=== PATIENT | female | born 1955 | race Caucasian/White ===

== ENCOUNTER 2018-06-19 09:00 | Outpatient (RCR) | payer OTHER, MEDICAID, SELFPAY ==
--- NOTE | 2018-05-26 14:32 | PTTR_ITS ---
DATE: 05/26/18 SUBJECTIVE: Yesenia states she underwent a Neurolysis in her left arm near the radial nerve on the lateral aspect of her left UE. This was done on the 28 of April. Has been rechecked by her doctor who indicated it was O.K. for her to resume P.T. She has also been seen by Ne Bower, MS, OTR for splint fabrication. She is going back to see her later this week for finishing touches , to point the outriggers on the dorsal aspect of the splint. Yesenia states she has been working light [employer], and feels as though she has gained a little bit of thumb motion back. Also, finding increased ability to hold her wrist from completely flopping into terminal flexion when raising her arm. OBJECTIVE: Seen today for a recheck. UE pronation 4+/5, supination 4-/5 and she is now able to extend MCP #2 through #5 from 80 of flexion to lacking 5 of extension. Has also regained some of her active contraction, gravity assisted, into extension, ranging from 70 of flexion to lacking 30 of extension. Shoulder internal and external rotation strength is 4/5 and painfree. Biceps 4-/5 with deviation into pronation. Thumb extension of the CMC joint is 1/5 and thumb whitaker abduction 3/5. She does have a mild opening in the mid incision with some cirrus anguis drainage. Redness is also noted, but she states this is due to a reaction from the band aid. Manual therapy: (06106z[1]). Left glenohumeral joint mobs through flexion, scapular plane abduction and external rotation. Actively, she is achieving 140 of elevation of the left shoulder in the scapular plane. Therapeutic procedures (11232d[1]). * [x] HEP review: upgraded her HEP, working a lot of gravity assisted extension, AA, of the wrist and fingers, particularly digits #1 through #5 of the MCP joint. * x Electrical Stim Unattended - [id number]: NMES to the dorsal forearm x10 minutes; 5 seconds on / 12 seconds off . Positive lead was on the proximal wrist extensor musculature and negative lead was on the dorsal extensor mechanism just proximal to the wrist joint line. Direct treatment time: 10:00 til 10:45 A.M. Assessment: Does seem to be some return into the wrist extensors, as she is able to maintain 30 lag from terminal extension, now. Did progress her AAROM for extension of the wrist and MCP joints. Plan: Will reach out to the O.T. to have a conversation regarding progression of treatment. Yesenia would also benefit from scar tissue mobs, particularly the distal half. Will see Yesenia 2x per week starting next week for Neuro muscular re-ed for wrist and finger extensors as well as wrist mobilization into extension as she achieves 35 to 40 AA. This will certainly need to be progressed so she can gain full AROM, not limited from an articular stand point , as her muscles heal. The patient is in agreement with this POC. MM/gc
--- NOTE | 2018-06-03 13:40 | PTTR_ITS ---
DATE: 06/03/18 SUBJECTIVE: Yesenia states she saw the [place] [facility] [place] her Outrigger Brace. Had some loose pins that needed tightening with an Raphael wrench making sure the carrying angle is at 90 from the phalanx. OBJECTIVE: Manual therapy: (18136l4). A/AA/PROM into MCP, DIP and PIP flexion. Wrist extension with dorsal and whitaker glides, as well as hold relax mobs into forearm supination. * [x] Neuro Re-education - (16435 x1): via NMES. She was issued an EMPI Unit to try at home 3x per day x30 minute sessions to the extensor musculature. Was able to palpate mild muscle activation in the dorsal forearm with this activity. Direct treatment time: 11:00 til 11:45 A.M. Plan: Continue as indicated above. She is making good gains with her composite flexion between MCP, DIP and PIP, approximating 1 cm. fingertip to whitaker crease. MM/gc
--- NOTE | 2018-06-05 13:26 | PTTR_ITS ---
DATE: 06/05/18 SUBJECTIVE: Yesenia reports compliancy with the NMES Unit. Had to turn it down from 30 to 25 secondary to increased aching in the forearm. Has also been working on her composite finger flexion. She sees her O.T. tomorrow. OBJECTIVE: Manual therapy: ([id number]). A/AA/PROM of MCP, DIP and PIP of digits #2 through #5 of the left hand followed by forearm supination mobs using hold relax technique. The patient is actively supinating to 60 and active assistively to 70 . Pronation is WNL. The patient is displaying recruitment of wrist extension, now. We had her work on active wrist extension against gravity. She starts at 70 of flexion and achieves -25 from neutral wrist extension. Also, worked on this in a gravity lessened position where she goes from 60 of flexion to neutral. This was followed by active MCP flexion and extension. She has good activation for MCP flexion, but unable to elicit any recruitment for extension, however PIP and DIP flexion and extension appear to provide motion through functional range. * [x] Neuro Re-education - (92994 x[1]): Ended with NMES to the wrist extensor musculature x10 min. Direct treatment time: 45 minutes from 7:30 til 8:15 A.M. Assessment: Holding up well with NMES use at home. Plan: Continue as indicated above. MM/gc
--- NOTE | 2018-06-10 11:15 | PTTR_ITS ---
DATE: 06/10/18 SUBJECTIVE: Yesenia states she saw the O.T. at [place] for splint adjustments, incorporating a thumb darlyn. Continues to work with the NMES. She does display some active wrist extension, now, in a gravity lessened position, achieving -10 from neutral position. OBJECTIVE: Manual therapy: ([id number]). Forearm supination hold relax mobs on the left followed by composite flexion, MCP, DIP and PIP into flexion achieving whitaker crease AA. Still approx. 1 cm. away A. Also, worked on isolated PIP and DIP combination flexion achieving fingertips to base of MCP on the whitaker surface. * x Neuro Re-education - (64107 x1): x10 minutes 1 to 3 ratio on/off with verbal and tactile cues for elicitation of AAROM into extension in a gravity lessened position. * Did require some assistance with MCP extension, as this is still limited. Direct treatment time: 45 minutes Assessment: Palpable contraction noted through the forearm extensor for wrist extension. Still no return for MCP extension at this point. Overall, is progressing well. Plan: Continue with the current POC examining her shoulder at her next appointment. MM/gc
--- NOTE | 2018-06-12 14:40 | PTTR_ITS ---
DATE: 06/12/18 SUBJECTIVE: Yesenia states the nylon band broke on her dynamic splint. She is otherwise holding up well with the NMES. OBJECTIVE: Manual therapy: (11412k2). Component flexion MCP, PIP and DIP of digits 2 through 5 of the left hand followed by MP and IP jt mobs whitaker and dorsal at a Grade 4. AAROM of the thumb into whitaker abduction and thumb extension. Worked AAROM into extension from 70 of flexion to neutral. Then performed mobs into wrist extension followed by left glenohumeral jt mobs for AAROM into flexion achieving 150 and then ext rotation to 75 to 80 . Held on NMES as she is performing this at home independently. Direct treatment time: 3:30 til 4:15 P.M. Did reapply 10# tension fishing line to the 2nd digit darlyn, which worked well. Plan: Continue as indicated above. MM/gc
--- NOTE | 2018-06-16 09:00 | PTTR_ITS ---
DATE: 06/16/18 SUBJECTIVE: Yesenia states that she did place an order for replacement NEMS unit which should be coming in later this week. Has been applying vitamin E ointment over the incision, which appears to be well closed with no drainage now. Manual therapy: (79033g9). A/AA/PROM MCP/PIP/DIP joint flexion,composite and individually blocked with MCP in neutral position. Also performed hold/ relax mobilization into forearm supination as well as radial and ulnar joint mobilization at radial carpal joint. Therapeutic procedures (85694q9). Progression of HEP incorporate some active ulnar deviation, radial deviation as well as active forearm supination/ pronation. Direct treatment time: 45 mins Total treatment time: 45 mins P: Continue as above. Review her newly acquire NEMS unit if she has it next visit. MM/dl
--- NOTE | 2018-06-19 09:00 | PTTR_ITS ---
DATE: 06/19/18 SUBJECTIVE: Yesenia reports that she purchased a NEMS unit. She brings in her [place] unit and we review application and usage of this. Self care training [id number]: For instruction and use of NEMS for forearm muscle recruitment purposes. This is followed by Manual therapy: (78674h5). Performed PIP/MCP/DIP flexion combined as well as isolated PIP/DIP flexion with MCP in neutral position. Also performed forearm supination, hold/relax with humeral,ulnar joint distraction. Then performed some L GH joint lateral distraction, caudal glides and ER hold/relax mobilization as well as stretching into terminal flexion which she is achieving 125 to 130 degrees. She substitutes to approximately 145 degrees AA, but this is with excessive scapular substitution. Direct treatment time: 45 mins Total treatment time: 45 mins P: Follow up with Yesenia after re-check with OT at [facility] [place], continue current POC, start to integrate some more AROM and light strengthening for the wrist and forearm as tolerable. Patient is in agreement with this. MM/dl
== END 2018-06-20 23:59 | disposition home or self-care (01) ==
LOC: PT 09:00
PROVIDERS: PCP Family Medicine; Referring Provider Psychiatry & Neurology Neurocritical Care; Visit Provider Psychiatry & Neurology Neurocritical Care
DX: S43.006D Unspecified dislocation of unspecified shoulder joint, subsequent encounter (principal); S14.3XXD Injury of brachial plexus, subsequent encounter
CPT/HCPCS: 97014; 97110; 97112; 97140; 97535

== ENCOUNTER 2018-12-07 15:15 | Inpatient (IN) | payer OTHER, MEDICAID, SELFPAY ==
[2018-12-07 15:20] VITALS: BP 163/92; PULSE 88; RESP 22; TEMP 36.4; O2SAT 93
[2018-12-07] MEDS: Albuterol/Ipratropium 3 ML UPD VIAL ×2 (15:32→15:55)
[2018-12-07 15:56] VITALS: RESP 22; O2SAT 92
--- NOTE | 2018-12-07 16:10 | DI.RAD_ITS ---
SYMPTOMS/DIAGNOSIS: COUGH CHEST: Frontal and lateral views. Comparison 11/24/11. The cardiac silhouette appears within normal limits. There does not appear to be any significant change in appearance of the lungs compared to the prior examination. No new infiltrates, effusions or pneumothoraces are identified. The bones are intact. IMPRESSION: No acute
--- NOTE | 2018-12-07 16:10 | W.ED.GENAD ---
Discharge Plan Discharge Details Chief Complaint: RespSymp Reason For Visit: PNEUMONIA Admit Date/Time: 12/07/18 18:01 Admit Provider: Martín Tai Attending Provider: Martín Tai Primary Care Provider: Kwesi Stewart ED Provider: John Bianchi Discharge Data Discharge Date/Time-TO BE ENTERED AT DEPARTURE: 12/07/18 18:56 Medical Decision Making 63-year-old female here with cough and shortness of breath. Saturating in the upper 80s with wheezing. RT was consulted. Patient was administered multiple DuoNeb's. Patient was given Solu-Medrol to 125 mg IV. On reassessment she has improved. She is saturating low 90s on 2 L nasal cannula. Labs reviewed and hypokalemia noted. Will replete. Leukocytosis noted and lactate of 1.7. Chest x-ray reviewed and interpreted by radiology: Opacity in the medial right lower lobe may represent atelectasis or pneumonia. Plan to treat with Levaquin. Blood cultures pending. Plan to admit. --Dr. Tai to admit the patient. HPI General Mode of arrival: ambulatory. Date/Time Provider Initiated Documentation: 12/07/18 16:10. Limitations to Documentation: no limitations. Information obtained by: patient. HPI Narrative: 63-year-old female here with cold and cough for the past 10 days. Cough is productive of yellow sputum. Symptoms have been severe at times. No modifiers. Symptoms persisting and worsening. Has associated body aches, fever, and now with crusty eye discharge today. She also notes associated shortness of breath. Related Data Home Medications Medication Instructions Recorded Confirmed Januvia 100 mg PO DAILY 05/31/14 12/07/18 Vitamins B Complex 1 tab PO DAILY 05/31/14 12/07/18 aspirin [Aspirin Low-Strength] 81 mg PO DAILY 05/31/14 12/07/18 atorvastatin 20 mg PO DAILY 05/31/14 12/07/18 calcium carbonate-vitamin D3 1 tab PO BID 05/31/14 12/07/18 glipizide 20 mg PO DAILY 05/31/14 12/07/18 ibuprofen 800 mg PO TID PRN #30 tablet 05/31/14 12/07/18 lisinopril 10 mg PO DAILY 05/31/14 12/07/18 multivitamin [Daily Vitamin] 1 tab PO DAILY 05/31/14 12/07/18 ranitidine HCl [Zantac] 150 mg PO BID 05/31/14 12/07/18 Lantus Solostar U-100 Insulin 8 unit SQ .QHS 09/26/17 12/07/18 Lantus Solostar U-100 Insulin 32 unit SQ .QAM 09/26/17 12/07/18 Trintellix 20 mg PO DAILY 09/26/17 12/07/18 levothyroxine 50 mcg PO DAILY 12/07/18 12/07/18 Previous Rx's Medication Instructions Recorded ibuprofen 800 mg PO TID PRN #30 tablet 05/31/14 Allergies Allergy/AdvReac Type Severity Reaction Status Date / Time bupropion HCl Allergy Intermediate RASH Unverified 12/07/18 15:20 [From Wellbutrin] General Stated Complaint: RespSymp PATY: 3 Review of Systems Review of Systems All systems reviewed & are unremarkable except as noted in HPI and below Constitutional Reports chills and Reports fever(s) [facility] Medical History GERD (gastroesophageal reflux disease) (Chronic) Type 2 diabetes mellitus treated with insulin (Chronic) Hyperlipidemia (Chronic) Essential hypertension (Chronic) Surgical History H/O lumbar discectomy (Resolved) H/O rotator cuff surgery (Resolved) H/O tubal ligation (Resolved) History of cholecystectomy (Resolved) Social History marital status: number of children: 3 Smoking and Tabacco status: Never alcohol intake: never Exam Const General: cooperative and no acute distress [facility] Head: normocephalic and atraumatic Mouth: moist mucous membranes Eyes Conjunctivae: normal conjunctivae Sclera: normal sclerae EOM: EOM intact bilaterally Neck Neck: trachea midline and supple Resp Effort & Inspection: cough and tachypneic Auscultation: diminished lung sounds bilaterally Cardio Jugular venous pressure: no JVD Rate: regular rate and not tachycardic Rhythm: regular rhythm GI Palpation: soft, not firm, no guarding, no masses, not rigid and nontender Skin General skin exam: no rashes or lesions noted Neuro General: alert, awake and tone normal Extrem General: no edema Psych Appearance: grossly normal Mental Status: mental status grossly normal Speech and Movement: speech and movement normal Course Vital Signs Temperature 36.4 C L 12/07/18 15:20 Pulse 88 12/07/18 15:20 Respiratory Rate 22 12/07/18 15:20 Blood Pressure 163/92 H 12/07/18 15:20 Pulse Oximetry 93 L 12/07/18 15:20 Temperature 36.4 C L 12/07/18 15:20 Temperature Source Temporal Artery Scan 12/07/18 15:20 Pulse 88 12/07/18 15:20 Respiratory Rate 22 12/07/18 15:56 Respiratory Effort 12/07/18 15:20 Blood Pressure 163/92 H 12/07/18 15:20 Pulse Oximetry 92 L 12/07/18 15:56 Oxygen Delivery Method Nasal Cannula 12/07/18 15:56 Oxygen Flow Rate 2 12/07/18 15:56
--- NOTE | 2018-12-07 16:14 | ED.GENADUL_ITS ---
Discharge Plan Discharge Details Chief Complaint: RespSymp Reason For Visit: PNEUMONIA Admit Date/Time: 12/07/18 18:01 Admit Provider: Martín Tai Attending Provider: Martín Tai Primary Care Provider: Kwesi Stewart ED Provider: John Bianchi Discharge Data Discharge Date/Time-TO BE ENTERED AT DEPARTURE: 12/07/18 18:56 Medical Decision Making 63-year-old female here with cough and shortness of breath. Saturating in the upper 80s with wheezing. RT was consulted. Patient was administered multiple DuoNeb's. Patient was given Solu-Medrol to 125 mg IV. On reassessment she has improved. She is saturating low 90s on 2 L nasal cannula. Labs reviewed and hypokalemia noted. Will replete. Leukocytosis noted and lactate of 1.7. Chest x-ray reviewed and interpreted by radiology: Opacity in the medial right lower lobe may represent atelectasis or pneumonia. Plan to treat with Levaquin. Blood cultures pending. Plan to admit. --Dr. Tai to admit the patient. HPI General Mode of arrival: ambulatory . Date/Time Provider Initiated Documentation: 12/07/18 16:10 . Limitations to Documentation: no limitations . Information obtained by: patient . HPI Narrative: 63-year-old female here with cold and cough for the past 10 days. Cough is productive of yellow sputum. Symptoms have been severe at times. No modifiers. Symptoms persisting and worsening. Has associated body aches, fever, and now with crusty eye discharge today. She also notes associated shortness of breath. Related Data Home Medications Medication Instructions Recorded Confirmed Januvia 100 mg PO DAILY 05/31/14 12/07/18 Vitamins B Complex 1 tab PO DAILY 05/31/14 12/07/18 aspirin [Aspirin Low-Strength] 81 mg PO DAILY 05/31/14 12/07/18 atorvastatin 20 mg PO DAILY 05/31/14 12/07/18 calcium carbonate-vitamin D3 1 tab PO BID 05/31/14 12/07/18 glipizide 20 mg PO DAILY 05/31/14 12/07/18 ibuprofen 800 mg PO TID PRN #30 tablet 05/31/14 12/07/18 lisinopril 10 mg PO DAILY 05/31/14 12/07/18 multivitamin [Daily Vitamin] 1 tab PO DAILY 05/31/14 12/07/18 ranitidine HCl [Zantac] 150 mg PO BID 05/31/14 12/07/18 Lantus Solostar U-100 Insulin 8 unit SQ .QHS 09/26/17 12/07/18 Lantus Solostar U-100 Insulin 32 unit SQ .QAM 09/26/17 12/07/18 Trintellix 20 mg PO DAILY 09/26/17 12/07/18 levothyroxine 50 mcg PO DAILY 12/07/18 12/07/18 Previous Rx's Medication Instructions Recorded ibuprofen 800 mg PO TID PRN #30 tablet 05/31/14 Allergies Allergy/AdvReac Type Severity Reaction Status Date / Time bupropion HCl Allergy Intermediate RASH Unverified 12/07/18 15:20 [From Wellbutrin] General Stated Complaint: RespSymp PATY: 3 Review of Systems Review of Systems All systems reviewed & are unremarkable except as noted in HPI and below Constitutional Reports chills and Reports fever(s) [facility] Medical History GERD (gastroesophageal reflux disease) (Chronic) Type 2 diabetes mellitus treated with insulin (Chronic) Hyperlipidemia (Chronic) Essential hypertension (Chronic) Surgical History H/O lumbar discectomy (Resolved) H/O rotator cuff surgery (Resolved) H/O tubal ligation (Resolved) History of cholecystectomy (Resolved) Social History marital status: number of children: 3 Smoking and Tabacco status: Never alcohol intake: never Exam Const General: cooperative and no acute distress [facility] Head: normocephalic and atraumatic Mouth: moist mucous membranes Eyes Conjunctivae: normal conjunctivae Sclera: normal sclerae EOM: EOM intact bilaterally Neck Neck: trachea midline and supple Resp Effort & Inspection: cough and tachypneic Auscultation: diminished lung sounds bilaterally Cardio Jugular venous pressure: no JVD Rate: regular rate and not tachycardic Rhythm: regular rhythm GI Palpation: soft, not firm, no guarding, no masses, not rigid and nontender Skin General skin exam: no rashes or lesions noted Neuro General: alert, awake and tone normal Extrem General: no edema Psych Appearance: grossly normal Mental Status: mental status grossly normal Speech and Movement: speech and movement normal Course Vital Signs Temperature 36.4 C L 12/07/18 15:20 Pulse 88 12/07/18 15:20 Respiratory Rate 22 12/07/18 15:20 Blood Pressure 163/92 H 12/07/18 15:20 Pulse Oximetry 93 L 12/07/18 15:20 Temperature 36.4 C L 12/07/18 15:20 Temperature Source Temporal Artery Scan 12/07/18 15:20 Pulse 88 12/07/18 15:20 Respiratory Rate 22 12/07/18 15:56 Respiratory Effort 12/07/18 15:20 Blood Pressure 163/92 H 12/07/18 15:20 Pulse Oximetry 92 L 12/07/18 15:56 Oxygen Delivery Method Nasal Cannula 12/07/18 15:56 Oxygen Flow Rate 2 12/07/18 15:56
[2018-12-07] MEDS: methylPREDNISolone SUCC 125 MG VIAL IVP (16:27)
[2018-12-07] MEDS: Lactated Ringers 1,000 ML 125 ML IV (16:27)
[2018-12-07 16:33] LABS: Lactate 1.7 mmol/L (0.6-1.4)
[2018-12-07 16:35] LABS: Abs Immature Grans 0.09 k/cumm (0.0-0.09); Absolute Lymphocyte Count 4.28 k/cumm (1.2-3.4); Absolute Monocyte Count 1.42 k/cumm (0.11-0.7); Absolute Neutrophil Count 10.02 k/cumm (1.2-6.7); Basophils % 0.4; Eosinophils % 4.8; HCT 42.5 % (36.0-46.0); HGB 14.2 g/dL (12.0-15.5); Immature Grans % 0.5; Lymphocytes % 25.7; Mean Corp. HGB Concentration 33.4 g/dL (32.0-36.0); Mean Corpuscular Hemoglobin 28.7 pg (27.0-33.0); Mean Platelet Volume 10.8 fL (8.0-11.0); Monocytes % 8.5; Neutrophils % 60.1; Platelet Count 259 x1000/uL (130-400); RBC 4.94 m/cumm (4.00-5.20); RBC Distribution Width 13.9 % (11.7-14.6); White Blood Cell Count 16.67 k/cumm (4.4-10.8)
[2018-12-07 16:42] LABS: Absolute Basophil Count 0.07 k/cumm (0.0-0.2)
[2018-12-07 16:52] LABS: ALT 21 U/L (12-78); AST 14 U/L (15-37); Albumin 2.8 g/dL (3.4-5.0); Alkaline Phosphatase 114 U/L (46-116); Anion Gap 11.9 mmol/L (3-11); BUN 14 mg/dL (7-18); Bilirubin, Total 0.5 mg/dL (0.2-1.0); CO2 26.1 mmol/L (21.0-32.0); CREATININE 1.56 mg/dL (0.55-1.02); Calcium 9.1 mg/dL (8.5-10.1); Chloride 98 mmol/L (98-107); Estimated GFR 33.74 (mL/min/1.73m2); Glucose 219 mg/dL (70-100); Potassium 3.3 mmol/L (3.5-5.1); Sodium 136 mmol/L (136-145); Total Protein 7.7 g/dL (6.4-8.2)
--- NOTE | 2018-12-07 17:08 | DI.VRAD_ITS ---
EXAM: XR Chest, 2 Views EXAM DATE/TIME: 12/07/2018 4:12 PM CLINICAL HISTORY: 63 years old, female; Signs and symptoms; Cough TECHNIQUE: XR of the chest, 2 views. COMPARISON: No relevant prior studies available. FINDINGS: Lungs: Opacity in the medial right lower lobe may represent atelectasis or pneumonia. Pleural space: Unremarkable. No pleural effusion. No pneumothorax. Heart/Mediastinum: Unremarkable. No cardiomegaly. Bones/joints: Unremarkable. IMPRESSION: Opacity in the medial right lower lobe may represent atelectasis or pneumonia. Dictated and Authenticated by: Kayla Maldonado MD. Ordering:ALIYA Lopez MD
[2018-12-07 17:24] VITALS: RESP 32; O2SAT 89
[2018-12-07] MEDS: POTASSIUM CHLORIDE 20 MEQ/100 ML BAG 50 MEQ IVPB (17:41)
[2018-12-07] MEDS: LEVOFLOXACIN 750 MG/150 ML BAG 100 MG IVPB (17:41)
[2018-12-07 19:20] LABS: Lactate 2.2 mmol/L (0.6-1.4)
[2018-12-07 19:24] VITALS: BP 137/78; PULSE 103; RESP 22; TEMP 36.9; O2SAT 93
[2018-12-07] MEDS: POTASSIUM CHLORIDE/0.9% NACL 1,000 ML 125 MEQ IV (20:00)
--- NOTE | 2018-12-07 20:40 | HPE_ITS ---
Date of service: 12/07/18 Time of Service: 20:33 Assessment and Plan (1) Community acquired pneumonia: Current visit: Yes Status: Acute Patient reports being up to date on her pneumonia vaccine and influenza v accine. I calculated her CURB-65 score to be 1 or 3.2% 30 day mortality. Her PSI or PORT score is 81 which is class III w/ 2.8% [address] she deserves short term hospitalization for parenteral antibiotics and corticosteroids, oxygen and bronchodilators. (2) SIRS (systemic inflammatory response syndrome): Current visit: Yes Status: Acute tachypnea, tachycardia and elevated lactate suggests impending sepsis. also concerning is her azotemia which may or may not be acute. She previously had been taken off metformin for her DM d/t renal insufficiency. We will see w/ hydration whether or not her creatinine improves. I will also check UA, urine microalbumin. (3) Acute kidney injury (nontraumatic): Current visit: Yes Status: Acute continue iv fluid hydration, check urine microalbumin, UA and repeat her BMP in the a.m. (4) Type 2 diabetes mellitus treated with insulin: Current visit: No Status: Chronic As long as she is able to eat and does not suffer from hypoglycemia spells (which I doubt as she will be on corticosteroids), I am going to keep her on her Januvia and glyburide and adjust her insulin to control her glucose. 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 (5) Essential hypertension: Current visit: No Status: Chronic continue current bp meds (6) Hyperlipidemia: Current visit: No Status: Chronic continue current atorvastatin Qualifiers: Hyperlipidemia type: unspecified Qualified Code(s): E78.5 - Hyperlipidemia, unspecified (7) GERD (gastroesophageal reflux disease): Current visit: No Status: Chronic continue her ranitidine Qualifiers: Esophagitis presence: esophagitis presence not specified Qualified Code(s): K21.9 - Gastro-esophageal reflux disease without esophagitis History of Present Illness Chief Complaint: shortness of breath, cough, Narrative: 63 yr old female w/ type 2 DM (on insulin therapy), HTN, HLD, non-smoker who presents to the ER w/ 10 d of cough, dyspnea, and cold symptoms including conjunctivitis. On arrival she is found to be afebrile but hypoxemic w/ SpO2 of 89% and tachycardic at 103 bpm and tachypneic at 32 but with elevatecd bp of 163/92.Her labs demonstrated a leukocytosis of 16,000 and mildly elevated lactate of 1.7 and elevated creatinine of 1.56. Nasal swab for influenza A &B was negative. CXR demonstrated medial RLL infiltrate. She was given multiple DuoNeb nebulizers and started on methylprednisolone 125 mg ivp and levaquin 750 mg ivp. she is now admitted under observation status for parenteral antibiotics, corticosteroids and continued nebulizer treatments. Review of Systems Constitutional Reports body ache(s), Reports chills, Reports fatigue, Reports fever(s), Reports headache(s), Reports malaise and Reports poor appetite Eyes Reports eye discharge and Reports itchy eyes ENT Reports headache(s), Reports nasal congestion, Reports nasal discharge and Reports sore throat Cardiovascular Reports chest pain (With coughing) and Reports dyspnea on exertion Respiratory Reports as per HPI, Reports change in phlegm color, Reports chest congestion, Reports cough, Denies hemoptysis, Reports excessive phlegm production, Reports pain with cough, Reports dyspnea on exertion and Reports wheezing Gastrointestinal Reports nausea and Reports vomiting (dry heaves w/ coughing) Genitourinary Reports system reviewed and no additional complaints, except as docu Musculoskeletal Reports system reviewed and no additional complaints, except as docu Integumentary/Breasts Reports system reviewed and no additional complaints, except as docu Neurologic Reports system reviewed and no additional complaints, except as docu and Reports headache(s) Endocrine Reports system reviewed and no additional complaints, except as docu and Reports fatigue Hematologic/Lymphatic Reports system reviewed and no additional complaints, except as docu Allergic/Immunologic Reports itchy eyes and Reports wheezing PFSH Medical History GERD (gastroesophageal reflux disease) (Chronic) Type 2 diabetes mellitus treated with insulin (Chronic) Hyperlipidemia (Chronic) Essential hypertension (Chronic) Surgical History H/O lumbar discectomy (Resolved) H/O rotator cuff surgery (Resolved) H/O tubal ligation (Resolved) History of cholecystectomy (Resolved) Social History marital status: number of children: 3 Smoking and Tabacco status: Never alcohol intake: never Meds Home Medications Medication Instructions Recorded Confirmed Type Januvia 100 mg PO DAILY 05/31/14 12/07/18 History Vitamins B Complex 1 tab PO DAILY 05/31/14 12/07/18 History aspirin [Aspirin Low-Strength] 81 mg PO DAILY 05/31/14 12/07/18 History atorvastatin 20 mg PO DAILY 05/31/14 12/07/18 History calcium carbonate-vitamin D3 1 tab PO BID 05/31/14 12/07/18 History glipizide 20 mg PO DAILY 05/31/14 12/07/18 History ibuprofen 800 mg PO TID PRN #30 tablet 05/31/14 12/07/18 Rx lisinopril 10 mg PO DAILY 05/31/14 12/07/18 History multivitamin [Daily Vitamin] 1 tab PO DAILY 05/31/14 12/07/18 History ranitidine HCl [Zantac] 150 mg PO BID 05/31/14 12/07/18 History Lantus Solostar U-100 Insulin 8 unit SQ .QHS 09/26/17 12/07/18 History Lantus Solostar U-100 Insulin 32 unit SQ .QAM 09/26/17 12/07/18 History Trintellix 20 mg PO DAILY 09/26/17 12/07/18 History levothyroxine 50 mcg PO DAILY 12/07/18 12/07/18 History Allergies Allergy/AdvReac Type Severity Reaction Status Date / Time bupropion HCl Allergy Intermediate RASH Unverified 12/07/18 15:20 [From Wellbutrin] Exam Const General: cooperative, no acute distress and ill appearing acutely Nutritional Appearance: overweight Orientation: alert, awake and oriented x3 HENMT Head: normal to inspection, no palpable skull fracture, normocephalic and atraumatic Ears: hearing grossly normal bilaterally, external ears normal and TM's normal bilaterally General nose exam: external nose normal, mucous membranes and turbinates abnormal boggy and erythematous and nasal discharge purulent Face and sinus: normal facial exam Mouth: oral mucosae normal Throat: posterior oropharynx normal Eyes Visual Douglas: normal visual douglas by confrontation Alignment and Position: alignment normal Periorbital: periorbital findings normal Eyelids: eyelid abnormality right upper eyelid lid margins crusty and scaly and left upper eyelid lid margins crusty and scaly Conjunctivae: conjunctival abnormality bilaterally conjunctival injection diffuse (erythematous) Sclera: sclerae normal Cornea: corneas normal Pupils: PERRL EOM: EOM intact bilaterally Neck Neck: normal visual inspection, full ROM, no lymphadenopathy, trachea midline and no JVD Carotids: normal carotid upstroke Resp Effort & Inspection: normal respiratory effort and able to speak in complete sentences Auscultation: bronchovesicular breath sounds on the right, rhonchi upper bilaterally, wheezes scattered wheezes and rub present Tactile Fremitus: tactile fremitus present Cardio Jugular venous pressure: no JVD Palpation: normal PMI Rate: regular rate Rhythm: regular rhythm Heart Sounds: S1 normal and S2 normal Bruits: no abdominal aortic bruits and no carotid bruits Pulses: normal peripheral pulses GI Inspection: normal to inspection and obesity Palpation: soft, no hepatosplenomegaly and nontender Percussion: normal to percussion Auscultation: normal bowel sounds Back/Spine/Pelvis Back: no CVA tenderness Cervical Spine: normal cervical lordosis Skin General skin exam: no rashes or lesions noted Neuro General: alert, awake, oriented x3, moves all extremities and no focal motor deficits Cognition: normal cognition Speech: speech normal Motor: muscle tone normal throughout and no movement abnormalities noted Extrem General: normal to inspection, full ROM and no clubbing, cyanosis or edema Psych Appearance: grossly normal and well kempt Mental Status: mental status grossly normal Speech and Movement: speech and movement normal Mood: congruent mood Affect: normal affect Attitude: cooperative Thought Process: normal Thought Content: normal Insight: insight good Judgment: judgment good Results Imaging Chest x-ray: image reviewed (FINDINGS: Lungs: Opacity in the medial right lower lobe may represent atelectasis or pneumonia. Pleural space: Unremarkable. No pleural effusion. No pneumothorax. Heart/Mediastinum: Unremarkable. No cardiomegaly. Bones/joints: Unremarkable. IMPRESSION: Opacity in the medial right lower ) Labs : 12/07/18 16:07 12/07/18 16:07 Laboratory Results - last 24 hr 12/07/18 12/07/18 12/07/18 16:07 16:07 16:07 WBC 16.67 H RBC 4.94 Hgb 14.2 Hct 42.5 MCV 86.0 MCH 28.7 MCHC 33.4 RDW 13.9 Plt Count 259 MPV 10.8 Immature Gran % 0.5 Neutrophils % 60.1 Lymphocytes % 25.7 Monocytes % 8.5 Eosinophils % 4.8 Basophils % 0.4 Absolute Neutrophils 10.02 H Absolute Lymphocytes 4.28 H Absolute Monocytes 1.42 H Absolute Eosinophils 0.80 H Absolute Basophils 0.07 Sodium 136 Potassium 3.3 L Chloride 98 Carbon Dioxide 26.1 Anion Gap 11.9 H BUN 14 Creatinine 1.56 H Estimated GFR/1.73 m2 33.74 Glucose 219 H Lactate 1.7 H Calcium 9.1 Total Bilirubin 0.5 AST 14 L ALT 21 Alkaline Phosphatase 114 Total Protein 7.7 Albumin 2.8 L 12/07/18 19:10 WBC RBC Hgb Hct MCV MCH MCHC RDW Plt Count MPV Immature Gran % Neutrophils % Lymphocytes % Monocytes % Eosinophils % Basophils % Absolute Neutrophils Absolute Lymphocytes Absolute Monocytes Absolute Eosinophils Absolute Basophils Sodium Potassium Chloride Carbon Dioxide Anion Gap BUN Creatinine Estimated GFR/1.73 m2 Glucose Lactate 2.2 H* Calcium Total Bilirubin AST ALT Alkaline Phosphatase Total Protein Albumin Last Vital Signs Temp 36.9 C 12/07/18 19:24 Pulse 103 H 12/07/18 19:24 Resp 22 12/07/18 19:24 BP 137/78 12/07/18 19:24 Pulse Ox 93 L 12/07/18 19:24
[2018-12-07] MEDS: Benzonatate 200 MG CAP PO (22:00)
[2018-12-07] MEDS: guaiFENesin 600 MG TABCR 1200 MG PO (22:00)
[2018-12-07] MEDS: Calcium 600mg/Vit D 200U TAB 1 TAB PO (22:00)
[2018-12-07] MEDS: Potassium Chloride 10 MEQ TABCR 20 MEQ PO (22:52)
[2018-12-07] MEDS: Insulin Aspart 300 UNITS/3 ML PEN SC (22:55)
[2018-12-07] MEDS: Insulin Glargine 300 UNITS/3 ML PEN 8 UNITS SC (22:58)
[2018-12-07 23:00] VITALS: BP 129/72; PULSE 89; RESP 21; TEMP 37.1; O2SAT 92
[2018-12-07] MEDS: Hydrocortisone SOD SUC. 100 MG VIAL 50 MG IVP (23:03)
[2018-12-08] VITALS (7 sets, daily range): BP systolic 110–137; BP diastolic 62–72; PULSE 74–100; RESP 1–19; TEMP 36.6–37.1; O2SAT 92–94
[2018-12-08 01:41] LABS: Bilirubin Negative (Negative); Blood Negative (Negative); Clarity Clear; Glucose 500 mg/dL (Negative); Ketones 15 mg/dL (Negative); Leukocyte Esterase Negative (Negative); Nitrite Negative (Negative); Urobilinogen 0.2 EU/dL (Up TO 0.2); pH 5.5 (5-8)
[2018-12-08] MEDS: POTASSIUM CHLORIDE/0.9% NACL 1,000 ML 125 MEQ IV (03:31)
[2018-12-08] MEDS: Ciprofloxacin 0.3% 2.5 ML BTL OU ×5 (03:38→21:18)
[2018-12-08 05:36] LABS: COMMENT (LAB VIEW ONLY) 31.74 mg/dL; Microalb ug/mg Crea 4.7 ug/mg Cr
[2018-12-08] MEDS: Hydrocortisone SOD SUC. 100 MG VIAL 50 MG IVP ×2 (06:25→12:42)
[2018-12-08] MEDS: glipiZIDE 10 MG TAB 20 MG PO (06:58)
[2018-12-08 07:39] LABS: Abs Immature Grans 0.08 k/cumm (0.0-0.09); Absolute Basophil Count 0.01 k/cumm (0.0-0.2); Absolute Eosinophil Count 0.01 k/cumm (0.0-0.7); Absolute Monocyte Count 0.42 k/cumm (0.11-0.7); Basophils % 0.1; Eosinophils % 0.1; HCT 37.7 % (36.0-46.0); HGB 12.6 g/dL (12.0-15.5); Immature Grans % 0.6; Lymphocytes % 8.2; Mean Corp. HGB Concentration 33.4 g/dL (32.0-36.0); Mean Corpuscular Hemoglobin 28.8 pg (27.0-33.0); Mean Corpuscular Volume 86.1 fL (80-95); Mean Platelet Volume 10.8 fL (8.0-11.0); Monocytes % 2.9; Neutrophils % 88.1; Platelet Count 290 x1000/uL (130-400); RBC 4.38 m/cumm (4.00-5.20); RBC Distribution Width 13.8 % (11.7-14.6); White Blood Cell Count 14.46 k/cumm (4.4-10.8)
[2018-12-08 07:45] LABS: Absolute Lymphocyte Count 1.19 k/cumm (1.2-3.4); Absolute Neutrophil Count 12.74 k/cumm (1.2-6.7)
[2018-12-08 07:58] LABS: Anion Gap 10.9 mmol/L (3-11); BUN 19 mg/dL (7-18); CO2 23.1 mmol/L (21.0-32.0); CREATININE 1.43 mg/dL (0.55-1.02); Chloride 102 mmol/L (98-107); Glucose 256 mg/dL (70-100); Magnesium 1.8 mg/dL (1.8-2.4); Potassium 4.6 mmol/L (3.5-5.1); Sodium 136 mmol/L (136-145)
[2018-12-08 08:06] LABS: Hemoglobin A1C 8.6 % (4.5-6.2)
[2018-12-08] MEDS: Multivitamin TAB 1 TAB PO (08:16)
[2018-12-08] MEDS: Vitamins B Comp w/C TAB 1 TAB PO (08:17)
[2018-12-08] MEDS: Benzonatate 200 MG CAP PO ×3 (08:17→21:04)
[2018-12-08] MEDS: Aspirin 81 MG CHEW PO (08:17)
[2018-12-08] MEDS: Lisinopril 10 MG TAB PO (08:17)
[2018-12-08] MEDS: Insulin Glargine 300 UNITS/3 ML PEN 32 UNITS SC (08:17)
[2018-12-08] MEDS: guaiFENesin 600 MG TABCR 1200 MG PO ×2 (08:17→21:05)
[2018-12-08] MEDS: Levothyroxine 50 MCG TAB PO (08:17)
[2018-12-08] MEDS: Calcium 600mg/Vit D 200U TAB 1 TAB PO ×2 (08:17→21:06)
[2018-12-08] MEDS: Insulin Aspart 300 UNITS/3 ML PEN SC ×7 (08:19→21:14)
[2018-12-08] MEDS: Enoxaparin 30 MG/0.3 ML SYR SC (08:21)
--- NOTE | 2018-12-08 09:29 | INITIAL_ITS ---
- If Service Date Differs Date of service: 12/08/18 Time of Service: 09:22 Care Management Initial Assess REASON FOR HOSPITALIZATION:: Community Acquired Pneumonia PAST MEDICAL HISTORY/PAST SURGICAL HISTORY:: GERD (gastroesophageal reflux disease) (Chronic). Type 2 diabetes mellitus treated with insulin (Chronic). Hyperlipidemia (Chronic). Essential hypertension (Chronic). H/O lumbar discectomy (Resolved). H/O rotator cuff surgery (Resolved). H/O tubal ligation (Resolved). History of cholecystectomy (Resolved) PREVIOUS FUNCTIONAL STATUS/SOCIAL/FAMILY SUPPORTS:: Yesenia resides with her Marty in [place]. She has three children whom reside locally and are supportive, as well as grandchildren whom she helps to care for at times. Yesenia is independent at baseline, drives, and manages ADL's CURRENT FUNCTIONAL STATUS:: Currently Yesenia is sitting up in bed. ADVANCE DIRECTIVES:: None on file Has patient been provided with information about the portal?: Yes Did the patient sign up for the portal?: No CODE STATUS:: Full Code INSURANCE COVERAGE / FINANCIAL ISSUES:: [employer] CURRENT HOME/COMMUNITY SERVICES/EQUIPMENT:: Currently Yesenia has no services or medical equipment in the community. PRIMARY CARE PHYSICIAN:: Kwesi Stewart POTENTIAL DISCHARGE NEEDS:: F/U appointment with PCP PATIENT/FAMILY EDUCATION NEEDS:: Review DC instructions, any limitations, and ongoing DC planning discussion. ANTICIPATED BARRIERS TO DISCHARGE:: None identified at this time. TRANSPORTATION:: Via private vehicle with Marty PLAN:: Yesenia will return home with no anticipated services once medically cleared. She will F/U with PCP and plan of care as prescribed. Yesenia's family to transport when ready.
--- NOTE | 2018-12-08 10:46 | CHAPLAIN ---
I introduced myself to Yesenia, explained my role and offered support. She had family members visiting with her when I stopped in. She did not seem interested in further conversation.
[2018-12-08] MEDS: Insulin Glargine 300 UNITS/3 ML PEN 10 UNITS SC (10:59)
[2018-12-08] MEDS: Normal Saline 1,000 ML 170 ML IV ×2 (11:07→18:05)
[2018-12-08 12:32] LABS: TSH 0.46 uIU/mL (0.358-3.74)
--- NOTE | 2018-12-08 14:05 | PGE_ITS ---
Date of Service Date of service: 12/08/18 Time of Service: 14:03 Assessment and Plan (1) Community acquired pneumonia: Start date: 12/08/18 Start time: 14:19 Current visit: Yes Status: Acute CXR with RLL atelectasis or pneumonia. improving. No SOB, does not require oxygen at this time. 94% RA. Steroids have been changed to PO will continue with levaquin IV (2) SIRS (systemic inflammatory response syndrome): Start date: 12/08/18 Start time: 14:24 Current visit: Yes Status: Acute Improving, resp 16, HR is 80, pt is able to maintain sats on RA at 94%. creatinine is improving. Afebrile. (3) Acute kidney injury (nontraumatic): Start date: 12/08/18 Start time: 14:26 Current visit: Yes Status: Acute continue IVF, creatinine is improving, urineablumin is 4.7 (4) Type 2 diabetes mellitus treated with insulin: Current visit: No Status: Chronic in the setting she is on steroids, SSI was started for tighter control. (5) Essential hypertension: Start date: 12/08/18 Start time: 14:29 Current visit: No Status: Chronic continue current bp meds (6) Hyperlipidemia: Start date: 12/08/18 Start time: 14:29 Current visit: No Status: Chronic continue current atorvastatin Qualifiers: Hyperlipidemia type: unspecified Qualified Code(s): E78.5 - Hyperlipidemia, unspecified (7) GERD (gastroesophageal reflux disease): Start date: 12/08/18 Start time: 14:29 Current visit: No Status: Chronic continue her ranitidine, and protonix has been added in the setting of a steroid Qualifiers: Esophagitis presence: esophagitis presence not specified Qualified Code(s): K21.9 - Gastro-esophageal reflux disease without esophagitis Subjective Patient reports: feels better Interval history since last seen: Mrs. Garcia is a 65 y.o female admitted from [facility] emergency department last night for cough, dyspnea, and cold symptoms. She has a history of diabetes type 2 on insulin, HTN, HLD, nonsmoker. She had been coughing and feeling ill for 10 days her oxygen level was 89% on RA and her heart rate was 103. She was afibrile but did have leukocytosis with elevated lactate and creatinine. Influenza was negative and CXR revealed RLL infiltrate. Today she sounds clear diminished. She said she felt great. She is afibrile with a pulse of 80 and resp 16. Oxygen level 94 on RA. Her lactate is being repeated and she does have fluids infusing at 170 an hour. She was placed on a sliding scale and her PO diabetes meds have been held in the setting where she is on steroids and will need tighter control with insulin. Her creatinine is trending down and will continued to be monitored. Exam Const General: cooperative, comfortable and no acute distress [facility] Head: normal to inspection Chest Chest: normal inspection of the chest Resp Effort & Inspection: normal respiratory effort and able to speak in complete sentences Auscultation: diminished lung sounds Other: no rhonci or wheezes Cardio Jugular venous pressure: no JVD Rhythm: regular rhythm Heart Sounds: S1 normal and S2 normal GI Inspection: normal to inspection Auscultation: normal bowel sounds Skin General skin exam: no rashes or lesions noted Objective Objective Clinical Data: Abnormal lab results 12/07/18 12/07/18 12/07/18 Range/Units 16:07 16:07 16:07 WBC 16.67 H (4.4-10.8) k/cumm Absolute Neutrophils 10.02 H (1.2-6.7) k/cumm Absolute Lymphocytes 4.28 H (1.2-3.4) k/cumm Absolute Monocytes 1.42 H (0.11-0.7) k/cumm Absolute Eosinophils 0.80 H (0.0-0.7) k/cumm Potassium 3.3 L (3.5-5.1) mmol/L Anion Gap 11.9 H (3-11) mmol/L BUN (7-18) mg/dL Creatinine 1.56 H (0.55-1.02) mg/dL Glucose 219 H (70-100) mg/dL Hemoglobin A1c (4.5-6.2) % Lactate 1.7 H (0.6-1.4) mmol/L AST 14 L (15-37) U/L Albumin 2.8 L (3.4-5.0) g/dL Urine Ketones (Negative) mg/dL Urine Glucose (Negative) mg/dL 12/07/18 12/08/18 12/08/18 Range/Units 19:10 01:32 07:06 WBC (4.4-10.8) k/cumm Absolute Neutrophils (1.2-6.7) k/cumm Absolute Lymphocytes (1.2-3.4) k/cumm Absolute Monocytes (0.11-0.7) k/cumm Absolute Eosinophils (0.0-0.7) k/cumm Potassium (3.5-5.1) mmol/L Anion Gap (3-11) mmol/L BUN 19 H (7-18) mg/dL Creatinine 1.43 H (0.55-1.02) mg/dL Glucose 256 H (70-100) mg/dL Hemoglobin A1c (4.5-6.2) % Lactate 2.2 H* (0.6-1.4) mmol/L AST (15-37) U/L Albumin (3.4-5.0) g/dL Urine Ketones 15 H (Negative) mg/dL Urine Glucose 500 H (Negative) mg/dL 12/08/18 12/08/18 Range/Units 07:06 07:06 WBC 14.46 H (4.4-10.8) k/cumm Absolute Neutrophils 12.74 H (1.2-6.7) k/cumm Absolute Lymphocytes 1.19 L (1.2-3.4) k/cumm Absolute Monocytes (0.11-0.7) k/cumm Absolute Eosinophils (0.0-0.7) k/cumm Potassium (3.5-5.1) mmol/L Anion Gap (3-11) mmol/L BUN (7-18) mg/dL Creatinine (0.55-1.02) mg/dL Glucose (70-100) mg/dL Hemoglobin A1c 8.6 H (4.5-6.2) % Lactate (0.6-1.4) mmol/L AST (15-37) U/L Albumin (3.4-5.0) g/dL Urine Ketones (Negative) mg/dL Urine Glucose (Negative) mg/dL Vital Signs Temperature 36.8 C 12/08/18 11:30 Temperature Source Tympanic 12/08/18 11:30 Pulse 80 12/08/18 11:30 Pulse Rhythm Regular 12/08/18 08:59 Respiratory Rate 16 12/08/18 11:30 Respiratory Effort Non-Labored 12/08/18 08:59 Respiratory Depth Normal 12/08/18 08:59 Respiratory Pattern Normal 12/08/18 08:59 Blood Pressure 121/72 12/08/18 11:30 Pulse Oximetry 94 L 12/08/18 11:30 Oxygen Delivery Method Room Air 12/08/18 11:30 Oxygen Flow Rate 0 12/08/18 11:30 Comment 12/07/18 17:24 Intake & Output 12/07/18 12/08/18 12/08/18 23:59 11:59 23:59 Intake Total 795.833 / 145.288 4890.583 / 2989.583 1500 / 2989.583 Output Total 700 / 700 1900 / 1900 Balance 95.833 / 95.833 -410.417 / 6117.458 7849 / 1089.583 Weight 127.006 kg Intake: IV 495.833 / 495.833 939.583 / 6372.572 7923 / 1939.583 Oral 300 / 300 550 / 1050 500 / 1050 Output: Urine 700 / 700 1900 / 1900 Other: Urine Color Yellow Yellow Urine Appearance Clear Clear Voiding Methods Toilet Toilet Laboratory Results WBC 14.46 k/cumm (4.4-10.8) H 12/08/18 07:06 RBC 4.38 m/cumm (4.00-5.20) 12/08/18 07:06 Hgb 12.6 g/dL (12.0-15.5) 12/08/18 07:06 Hct 37.7 % (36.0-46.0) 12/08/18 07:06 MCV 86.1 fL (80-95) 12/08/18 07:06 MCH 28.8 pg (27.0-33.0) 12/08/18 07:06 MCHC 33.4 g/dL (32.0-36.0) 12/08/18 07:06 RDW 13.8 % (11.7-14.6) 12/08/18 07:06 Plt Count 290 x1000/uL (130-400) 12/08/18 07:06 MPV 10.8 fL (8.0-11.0) 12/08/18 07:06 Immature Gran % 0.6 02/18/19 07:06 Neutrophils % 88.1 12/08/18 07:06 Lymphocytes % 8.2 12/08/18 07:06 Monocytes % 2.9 12/08/18 07:06 Eosinophils % 0.1 12/08/18 07:06 Basophils % 0.1 12/08/18 07:06 Absolute Neutrophils 12.74 k/cumm (1.2-6.7) H 12/08/18 07:06 Absolute Lymphocytes 1.19 k/cumm (1.2-3.4) L 12/08/18 07:06 Absolute Monocytes 0.42 k/cumm (0.11-0.7) 12/08/18 07:06 Absolute Eosinophils 0.01 k/cumm (0.0-0.7) 12/08/18 07:06 Absolute Basophils 0.01 k/cumm (0.0-0.2) 12/08/18 07:06 Sodium 136 mmol/L (136-145) 12/08/18 07:06 Potassium 4.6 mmol/L (3.5-5.1) D 12/08/18 07:06 Chloride 102 mmol/L (98-107) 12/08/18 07:06 Carbon Dioxide 23.1 mmol/L (21.0-32.0) 12/08/18 07:06 Anion Gap 10.9 mmol/L (3-11) 12/08/18 07:06 BUN 19 mg/dL (7-18) H 12/08/18 07:06 Creatinine 1.43 mg/dL (0.55-1.02) H 12/08/18 07:06 Estimated GFR/1.73 m2 37.30 (mL/min/1.73m2) 12/08/18 07:06 Glucose 256 mg/dL (70-100) H 12/08/18 07:06 Hemoglobin A1c 8.6 % (4.5-6.2) H 12/08/18 07:06 Lactate 2.2 mmol/L (0.6-1.4) H* 12/07/18 19:10 Calcium 9.0 mg/dL (8.5-10.1) 12/08/18 07:06 Magnesium 1.8 mg/dL (1.8-2.4) 12/08/18 07:06 Total Bilirubin 0.5 mg/dL (0.2-1.0) 12/07/18 16:07 AST 14 U/L (15-37) L 12/07/18 16:07 ALT 21 U/L (12-78) 12/07/18 16:07 Alkaline Phosphatase 114 U/L (46-116) 12/07/18 16:07 Total Protein 7.7 g/dL (6.4-8.2) 12/07/18 16:07 Albumin 2.8 g/dL (3.4-5.0) L 12/07/18 16:07 TSH 0.46 uIU/mL (0.358-3.74) 12/08/18 07:06 Urine Color Yellow (Yellow) 12/08/18 01:32 Urine Clarity Clear 12/08/18 01:32 Urine pH 5.5 (5-8) 12/08/18 01:32 Ur Specific Rosie 1.010 (1.005-1.025) 12/08/18 01:32 Urine Protein Negative mg/dL (Negative) 12/08/18 01:32 Urine Ketones 15 mg/dL (Negative) H 12/08/18 01:32 Urine Blood Negative (Negative) 12/08/18 01:32 Urine Nitrite Negative (Negative) 12/08/18 01:32 Urine Bilirubin Negative (Negative) 12/08/18 01:32 Urine Urobilinogen 0.2 EU/dL (Up TO 0.2) 12/08/18 01:32 Ur Leukocyte Esterase Negative (Negative) 12/08/18 01:32 Ur Creatinine mg/dL 31.74 mg/dL 12/08/18 01:32 Ur Microalbumin mg/L 1.5 mg/L (1.30-20.0) 12/08/18 01:32 Microalb/Creat Ratio 4.7 ug/mg Cr 12/08/18 01:32 Urine Glucose 500 mg/dL (Negative) H 12/08/18 01:32
[2018-12-08] MEDS: Albuterol/Ipratropium 3 ML UPD VIAL UPD ×2 (14:19→18:08)
[2018-12-08 14:34] LABS: Lactate-non-spesis 1.3 mmol/l (0.6-1.4)
[2018-12-08] MEDS: predniSONE 20 MG TAB 40 MG PO (21:03)
[2018-12-08] MEDS: Atorvastatin 20 MG TAB PO (21:06)
[2018-12-08] MEDS: Insulin Glargine 300 UNITS/3 ML PEN 15 UNITS SC (21:16)
[2018-12-08 22:23] LABS: Lactate 2.7 mmol/L (0.6-1.4)
[2018-12-09] VITALS (8 sets, daily range): BP systolic 104–151; BP diastolic 62–70; PULSE 85–95; RESP 1–20; TEMP 36.6–37.1; O2SAT 91–96
[2018-12-09] MEDS: Ciprofloxacin 0.3% 2.5 ML BTL OU ×6 (00:02→19:36)
[2018-12-09] MEDS: Albuterol/Ipratropium 3 ML UPD VIAL UPD ×4 (00:05→18:01)
[2018-12-09] MEDS: Normal Saline 1,000 ML 170 ML IV ×3 (00:38→06:08)
[2018-12-09] MEDS: Normal Saline Flush 10 ML SYR IVP ×2 (00:38→18:33)
[2018-12-09] MEDS: Enoxaparin 30 MG/0.3 ML SYR SC (08:11)
[2018-12-09] MEDS: Insulin Glargine 300 UNITS/3 ML PEN 32 UNITS SC (08:12)
[2018-12-09] MEDS: Insulin Aspart 300 UNITS/3 ML PEN SC ×7 (08:12→21:24)
[2018-12-09] MEDS: Vitamins B Comp w/C TAB 1 TAB PO (08:13)
[2018-12-09] MEDS: Pantoprazole 40 MG TABCR PO (08:13)
[2018-12-09] MEDS: Calcium 600mg/Vit D 200U TAB 1 TAB PO ×2 (08:13→19:36)
[2018-12-09] MEDS: Aspirin 81 MG CHEW PO (08:13)
[2018-12-09] MEDS: predniSONE 20 MG TAB 40 MG PO ×2 (08:13→19:36)
[2018-12-09] MEDS: guaiFENesin 600 MG TABCR 1200 MG PO ×2 (08:13→19:35)
[2018-12-09] MEDS: Multivitamin TAB 1 TAB PO (08:13)
[2018-12-09] MEDS: Levothyroxine 50 MCG TAB PO (08:13)
[2018-12-09] MEDS: Lisinopril 10 MG TAB PO (08:13)
[2018-12-09] MEDS: Benzonatate 200 MG CAP PO ×3 (08:13→19:36)
[2018-12-09] MEDS: Acetaminophen 325 MG TAB 650 MG PO (08:27)
[2018-12-09 12:09] LABS: Abs Immature Grans 0.18 k/cumm (0.0-0.09); Absolute Lymphocyte Count 1.33 k/cumm (1.2-3.4); Absolute Monocyte Count 0.84 k/cumm (0.11-0.7); Absolute Neutrophil Count 18.08 k/cumm (1.2-6.7); HCT 35.9 % (36.0-46.0); HGB 12.2 g/dL (12.0-15.5); Immature Grans % 0.9; Lymphocytes % 6.5; Mean Corpuscular Hemoglobin 29.3 pg (27.0-33.0); Mean Corpuscular Volume 86.1 fL (80-95); Mean Platelet Volume 10.2 fL (8.0-11.0); Monocytes % 4.1; Neutrophils % 88.5; Platelet Count 292 x1000/uL (130-400); RBC 4.17 m/cumm (4.00-5.20); RBC Distribution Width 14.5 % (11.7-14.6); White Blood Cell Count 20.43 k/cumm (4.4-10.8)
[2018-12-09 12:21] LABS: Anion Gap 10.6 mmol/L (3-11); BUN 34 mg/dL (7-18); CO2 21.4 mmol/L (21.0-32.0); CREATININE 1.79 mg/dL (0.55-1.02); Calcium 8.8 mg/dL (8.5-10.1); Chloride 105 mmol/L (98-107); Estimated GFR 28.79 (mL/min/1.73m2); Glucose 305 mg/dL (70-100); Magnesium 1.7 mg/dL (1.8-2.4); Potassium 3.9 mmol/L (3.5-5.1); Sodium 137 mmol/L (136-145)
--- NOTE | 2018-12-09 12:31 | PHARADMIT ---
Admission Pharmacy Clinical Review PNEUMONIA Code Status Full Code Current Weight Wgt-126.4 kg Renally Cleared and Narrow Therapeutic Index Meds CrCl~ 32 mL/min Meds-OK QTc Value / Action Taken none BP Control, Fever BP- 151/69 Tmax- 37.1C Electrolytes reviewed Na- 137 K+3.9 Mag- 1.7 DVT Prophylaxis Lovenox 30mg Opiate Usage / Scheduled Bowel Regimen Ordered No Yes Plt/SCr for Heparin / Enoxaparin Plts-292 SCr-1.79 INR for Warfarin na H/H stable, WBC/Bands H&H-12.2/35.9 WBC- 20.43 Antibiotic appropriateness Levaquin, Cultures and Sensitivities Blood-noGrowth/24hrs, Sputum- Gram(-) hilary, Flu-neg Surgical ABX d/c within 24 hr na DM control / Insulin Dosing BG- 305 [id number]-5.6 Aspart,Lantus Heart Failure (Check EF%) (OSVALDO's, B-Block, Diuretics) none IV to PO Switch No Home Meds Reviewed Yes Home Meds Not Ordered Calcium/D, Glipizide, Ibuprofen, Lisinopril, Januvia Comments PatOwn- Vortioxetine
[2018-12-09] MEDS: Furosemide 20 MG/2 ML VIAL IVP (12:36)
--- NOTE | 2018-12-09 13:52 | PDOC.CMPRO ---
- If Service Date Differs Date of service: 12/09/18 Time of Service: 13:52 Care Management Progress Note S/O: Yesenia continues to require hospitalization for pneumonia. She has transitioned to an observation to inpatient today. Yesenia continues to report a sore throat. no change in DC plan, continues on IV antibiotics. A: 63 y/o female admitted 12/07/18 for Pneumonia P: Yesenia will return home with no anticipated services once medically cleared. She will F/U with PCP and plan of care as prescribed. Yesenia's family to transport when ready.
--- NOTE | 2018-12-09 14:08 | DI.US_ITS ---
SYMPTOMS/DIAGNOSIS: ASYMMETRIC EDEMA, BILATERAL LOWER EXTREMITIES, ? DVT BILATERAL LOWER EXTREMITY ULTRASOUND: The deep veins of the lower extremities show normal compression, augmentation and color flow. There is no evidence of a deep venous thrombus in either lower extremity. The saphenofemoral junctions are unremarkable bilaterally. IMPRESSION: No evidence of a deep venous thrombus in either lower extremity.
[2018-12-09] MEDS: Nystatin 500000 UNITS/5 ML SUSP 5ML CUP PO ×3 (14:33→21:21)
[2018-12-09 15:02] LABS: NT-proBNP 2045 pg/mL
[2018-12-09 15:05] LABS: Troponin I < 0.02 ng/mL (0.00-0.06)
--- NOTE | 2018-12-09 15:48 | DI.US_ITS ---
SYMPTOM/DIAGNOSIS: FENG RENAL ULTRASOUND: Routine examination. The right kidney measures 10.0 cm. long. The left kidney measures 9.2 cm. long. No renal masses, calculi or obstruction is identified. There is blood flow to both kidneys. The prevoid urinary bladder volume is 290 cc's. The bladder wall is smooth. No intraluminal masses are seen. The right uretal jet was visualized. Postvoid urinary bladder volume was 0. IMPRESSION: No acute abnormality.
--- NOTE | 2018-12-09 16:55 | DI.VRAD_ITS ---
EXAM: US Retroperitoneal Complete. EXAM DATE/TIME: 12/09/2018 4:16 PM CLINICAL HISTORY: 63 years old, female; Abnormal findings; Abnormal lab test; Other: Dagoberto TECHNIQUE: Real-time ultrasound of the retroperitoneum with image documentation. Complete exam. Technologist notes: Main COMPARISON: No relevant prior studies available. FINDINGS: Bilateral echogenicity in the renal sinus regions is thought to be secondary to echogenic fat. Right kidney: No stones. No hydronephrosis. Left kidney: No stones. No hydronephrosis. Bladder: Bladder was imaged with no evidence of masses or stones. IMPRESSION: No acute findings. Dictated and Authenticated by: Ricky Tamayo MD. Ordering:ANAT Zapata MD
[2018-12-09] MEDS: LEVOFLOXACIN 750 MG/150 ML BAG 100 MG IVPB (18:32)
--- NOTE | 2018-12-09 18:35 | PGE_ITS ---
Date of Service Date of service: 12/09/18 Time of Service: 14:00 Assessment and Plan (1) Community acquired pneumonia: Current visit: Yes Status: Acute Slow to improve. Not requiring oxygen at this time. Will repeat chest x- ray in the morning. Continue current dose of steroids. Will add Rocephin. Continue levaquin IV (2) SIRS (systemic inflammatory response syndrome): Current visit: Yes Status: Acute Leukocytosis is partially due to steroids. However, clearly the respiratory infection is not improving as quickly as we would like. Adding Rocephin to levofloxacin. (3) Acute kidney injury (nontraumatic): Current visit: Yes Status: Acute Discontinue OSVALDO inhibitor. Ultrasound of the kidneys is negative. Will reassess kidney function in the morning. (4) Type 2 diabetes mellitus treated with insulin: Current visit: No Status: Chronic With steroid-induced hyperglycemia. No change in therapy. (5) Essential hypertension: Current visit: No Status: Chronic Holding OSVALDO inhibitor in light of acute kidney injury (6) Hyperlipidemia: Current visit: No Status: Chronic continue atorvastatin Qualifiers: Hyperlipidemia type: unspecified Qualified Code(s): E78.5 - Hyperlipidemia, unspecified (7) GERD (gastroesophageal reflux disease): Current visit: No Status: Chronic DC Protonix in light of acute kidney injury. Continue ranitidine. Qualifiers: Esophagitis presence: esophagitis presence not specified Qualified Code(s): K21.9 - Gastro-esophageal reflux disease without esophagitis (8) Discharge planning issues: Current visit: Yes Status: Acute Full code. Could potentially be discharged home tomorrow if respiratory status and kidney function are better. (9) DVT prophylaxis: Current visit: Yes Status: Acute Lovenox Subjective Interval history since last seen: Ms. Hoover says she feels about the same. She continues to have a cough and gets short of breath on minimal exertion. She denies any dizziness, chest pain, nausea, vomiting. She states her lower leg swelling is chronic. Sputum culture is growing gram-negative rods. Exam Narrative Exam Narrative: General: A pleasant obese mildly tachypneic middle-aged female, sitting at the edge of the bed HEENT: Extraocular movements are intact, moist mucous membranes Heart: Regularly regular rhythm, no murmurs, rubs, or gallops Lungs: Quiet wheezing on auscultation bilaterally GI: Abdomen is soft, obese, nontender, nondistended Extremities: 1+ bilateral lower extremity minimally pitting edema, nor clubbing or cyanosis noted. Objective Objective Clinical Data: Abnormal lab results 12/08/18 12/09/18 12/09/18 Range/Units 22:05 12:00 12:00 WBC 20.43 H (4.4-10.8) k/cumm Hct 35.9 L (36.0-46.0) % Absolute Neutrophils 18.08 H (1.2-6.7) k/cumm Absolute Monocytes 0.84 H (0.11-0.7) k/cumm BUN 34 H D (7-18) mg/dL Creatinine 1.79 H (0.55-1.02) mg/dL Glucose 305 H (70-100) mg/dL Lactate 2.7 H* (0.6-1.4) mmol/L Magnesium 1.7 L (1.8-2.4) mg/dL NT-Pro-B Natriuret Pep 2045 H ( - 299) pg/mL Vital Signs Temperature 36.9 C 12/09/18 16:05 Temperature Source Tympanic 12/09/18 16:05 Pulse 91 H 12/09/18 16:05 Pulse Rhythm Regular 12/09/18 16:31 Respiratory Rate 17 12/09/18 16:05 Respiratory Effort Non-Labored 12/09/18 16:31 Respiratory Depth Normal 12/09/18 16:31 Respiratory Pattern Irregular 12/09/18 16:31 Blood Pressure 124/70 12/09/18 16:05 Pulse Oximetry 92 L 12/09/18 16:05 Oxygen Delivery Method Room Air 12/09/18 16:05 Oxygen Flow Rate 0 12/09/18 16:05 Pain Level 0 12/09/18 04:00 Comment 12/07/18 17:24 Intake & Output 12/08/18 12/09/18 12/09/18 23:59 11:59 23:59 Intake Total 4000 / 5489.583 3846.333 / 4436.333 590 / 4436.333 Output Total 1450 / 3350 1400 / 1400 Balance 2550 / 2139.583 2446.333 / 3036.333 590 / 3036.333 Weight 126.4 kg Intake: IV 3000 / 3939.583 2756.333 / 2756.333 Oral 1000 / 1550 1090 / 1680 590 / 1680 Output: Urine 1450 / 3350 1400 / 1400 Other: Urine Color Light Stephanie Yellow Urine Appearance Sediment Clear Urine Odor Normal Normal Voiding Methods Toilet Toilet Laboratory Results WBC 20.43 k/cumm (4.4-10.8) H 12/09/18 12:00 RBC 4.17 m/cumm (4.00-5.20) 12/09/18 12:00 Hgb 12.2 g/dL (12.0-15.5) 12/09/18 12:00 Hct 35.9 % (36.0-46.0) L 12/09/18 12:00 MCV 86.1 fL (80-95) 12/09/18 12:00 MCH 29.3 pg (27.0-33.0) 12/09/18 12:00 MCHC 34.0 g/dL (32.0-36.0) 12/09/18 12:00 RDW 14.5 % (11.7-14.6) 12/09/18 12:00 Plt Count 292 x1000/uL (130-400) 12/09/18 12:00 MPV 10.2 fL (8.0-11.0) 12/09/18 12:00 Immature Gran % 0.9 12/09/18 12:00 Neutrophils % 88.5 12/09/18 12:00 Lymphocytes % 6.5 12/09/18 12:00 Monocytes % 4.1 12/09/18 12:00 Eosinophils % 0.0 12/09/18 12:00 Basophils % 0.0 12/09/18 12:00 Absolute Neutrophils 18.08 k/cumm (1.2-6.7) H 12/09/18 12:00 Absolute Lymphocytes 1.33 k/cumm (1.2-3.4) 12/09/18 12:00 Absolute Monocytes 0.84 k/cumm (0.11-0.7) H 12/09/18 12:00 Absolute Eosinophils 0.00 k/cumm (0.0-0.7) 12/09/18 12:00 Absolute Basophils 0.00 k/cumm (0.0-0.2) 12/09/18 12:00 Sodium 137 mmol/L (136-145) 12/09/18 12:00 Potassium 3.9 mmol/L (3.5-5.1) 12/09/18 12:00 Chloride 105 mmol/L (98-107) 12/09/18 12:00 Carbon Dioxide 21.4 mmol/L (21.0-32.0) 12/09/18 12:00 Anion Gap 10.6 mmol/L (3-11) 12/09/18 12:00 BUN 34 mg/dL (7-18) H D 12/09/18 12:00 Creatinine 1.79 mg/dL (0.55-1.02) H 12/09/18 12:00 Estimated GFR/1.73 m2 28.79 (mL/min/1.73m2) 12/09/18 12:00 Glucose 305 mg/dL (70-100) H 12/09/18 12:00 Hemoglobin A1c 8.6 % (4.5-6.2) H 12/08/18 07:06 Lactate 2.7 mmol/L (0.6-1.4) H* 12/08/18 22:05 Calcium 8.8 mg/dL (8.5-10.1) 12/09/18 12:00 Magnesium 1.7 mg/dL (1.8-2.4) L 12/09/18 12:00 Total Bilirubin 0.5 mg/dL (0.2-1.0) 12/07/18 16:07 AST 14 U/L (15-37) L 12/07/18 16:07 ALT 21 U/L (12-78) 12/07/18 16:07 Alkaline Phosphatase 114 U/L (46-116) 12/07/18 16:07 Troponin I < 0.02 ng/mL (0.00-0.06) 12/09/18 12:00 NT-Pro-B Natriuret Pep 2045 pg/mL (-299) H 12/09/18 12:00 Total Protein 7.7 g/dL (6.4-8.2) 12/07/18 16:07 Albumin 2.8 g/dL (3.4-5.0) L 12/07/18 16:07 TSH 0.46 uIU/mL (0.358-3.74) 12/08/18 07:06 Urine Color Yellow (Yellow) 12/08/18 01:32 Urine Clarity Clear 12/08/18 01:32 Urine pH 5.5 (5-8) 12/08/18 01:32 Ur Specific [place] 1.010 (1.005-1.025) 12/08/18 01:32 Urine Protein Negative mg/dL (Negative) 12/08/18 01:32 Urine Ketones 15 mg/dL (Negative) H 12/08/18 01:32 Urine Blood Negative (Negative) 12/08/18 01:32 Urine Nitrite Negative (Negative) 12/08/18 01:32 Urine Bilirubin Negative (Negative) 12/08/18 01:32 Urine Urobilinogen 0.2 EU/dL (Up TO 0.2) 12/08/18 01:32 Ur Leukocyte Esterase Negative (Negative) 12/08/18 01:32 Ur Creatinine mg/dL 31.74 mg/dL 12/08/18 01:32 Ur Microalbumin mg/L 1.5 mg/L (1.30-20.0) 12/08/18 01:32 Microalb/Creat Ratio 4.7 ug/mg Cr 12/08/18 01:32 Urine Glucose 500 mg/dL (Negative) H 12/08/18 01:32 US kidneys: No acute findings. US venous BLE's: No evidence of a deep venous thrombus in either lower extremity.
[2018-12-09] MEDS: Normal Saline 500 ML IV (18:42)
[2018-12-09] MEDS: Atorvastatin 20 MG TAB PO (19:36)
[2018-12-09] MEDS: Insulin Glargine 300 UNITS/3 ML PEN 15 UNITS SC (21:22)
[2018-12-10] VITALS (9 sets, daily range): BP systolic 132–153; BP diastolic 68–78; PULSE 84–122; RESP 1–24; TEMP 36.4–36.7; O2SAT 92–96
[2018-12-10] MEDS: Ciprofloxacin 0.3% 2.5 ML BTL OU ×4 (00:07→11:42)
[2018-12-10] MEDS: Albuterol/Ipratropium 3 ML UPD VIAL UPD ×3 (00:08→11:53)
[2018-12-10] MEDS: Normal Saline 1,000 ML 100 ML IV (00:24)
[2018-12-10] MEDS: Nystatin 500000 UNITS/5 ML SUSP 5ML CUP PO ×3 (06:37→14:59)
--- NOTE | 2018-12-10 08:00 | DI.RAD_ITS ---
SYMPTOMS/DIAGNOSIS: FOLLOW UP PNEUMONIA PORTABLE AP CHEST: Comparison from 12/07/18. The heart size appears stable. The pulmonary vasculature is within normal limits. There are increased lung markings in the bases bilaterally. These may represent developing pneumonia or atelectasis. No gross effusions are seen. No pneumothorax is identified. The bones are intact. IMPRESSION: Small linear infiltrates seen in the lung bases. These may represent atelectasis or pneumonia. Follow up as appropriate.
[2018-12-10 08:03] LABS: Abs Immature Grans 0.26 k/cumm (0.0-0.09); Absolute Basophil Count 0.02 k/cumm (0.0-0.2); Absolute Eosinophil Count 0.02 k/cumm (0.0-0.7); Absolute Lymphocyte Count 1.28 k/cumm (1.2-3.4); Absolute Monocyte Count 0.72 k/cumm (0.11-0.7); Absolute Neutrophil Count 13.76 k/cumm (1.2-6.7); Basophils % 0.1; Eosinophils % 0.1; HGB 11.8 g/dL (12.0-15.5); Immature Grans % 1.6; Mean Corp. HGB Concentration 33.7 g/dL (32.0-36.0); Mean Corpuscular Hemoglobin 29.1 pg (27.0-33.0); Mean Corpuscular Volume 86.4 fL (80-95); Mean Platelet Volume 10.2 fL (8.0-11.0); Monocytes % 4.5; Neutrophils % 85.7; Platelet Count 289 x1000/uL (130-400); RBC 4.05 m/cumm (4.00-5.20); RBC Distribution Width 14.8 % (11.7-14.6); White Blood Cell Count 16.06 k/cumm (4.4-10.8)
[2018-12-10 08:07] LABS: Anion Gap 9.2 mmol/L (3-11); BUN 31 mg/dL (7-18); CO2 22.8 mmol/L (21.0-32.0); CREATININE 1.62 mg/dL (0.55-1.02); Calcium 9.1 mg/dL (8.5-10.1); Chloride 108 mmol/L (98-107); Glucose 211 mg/dL (70-100); Magnesium 1.7 mg/dL (1.8-2.4); Sodium 140 mmol/L (136-145)
[2018-12-10] MEDS: Insulin Aspart 300 UNITS/3 ML PEN SC ×3 (08:27→12:09)
[2018-12-10] MEDS: Insulin Glargine 300 UNITS/3 ML PEN 32 UNITS SC (08:29)
[2018-12-10] MEDS: guaiFENesin 600 MG TABCR 1200 MG PO (10:05)
[2018-12-10] MEDS: Levothyroxine 50 MCG TAB PO (10:05)
[2018-12-10] MEDS: Vitamins B Comp w/C TAB 1 TAB PO (10:06)
[2018-12-10] MEDS: predniSONE 20 MG TAB 40 MG PO (10:06)
[2018-12-10] MEDS: Multivitamin TAB 1 TAB PO (10:06)
[2018-12-10] MEDS: Aspirin 81 MG CHEW PO (10:07)
[2018-12-10] MEDS: Calcium 600mg/Vit D 200U TAB 1 TAB PO (10:07)
[2018-12-10] MEDS: Benzonatate 200 MG CAP PO ×2 (10:07→15:00)
[2018-12-10] MEDS: Enoxaparin 30 MG/0.3 ML SYR SC (10:07)
[2018-12-10] MEDS: MAGNESIUM SULFATE 2 GM/50 ML BAG IVPB (11:42)
--- NOTE | 2018-12-10 13:19 | W.PM.DS.N ---
Date of service: 12/10/18 Time of Service: 13:20 DS: Diagnosis Discharge Diagnosis (1) Community acquired pneumonia: Status: Acute (2) Acute kidney injury (nontraumatic): Status: Acute (3) Type 2 diabetes mellitus treated with insulin: Status: Chronic (4) Essential hypertension: Status: Chronic (5) Hyperlipidemia: Status: Chronic (6) GERD (gastroesophageal reflux disease): Status: Chronic (7) Obesity, morbid, BMI 40.0-49.9: Status: Chronic Discharge Plan Disposition Patient Disposition: HOME Condition: Stable Discharge Details Reason For Visit: PNEUMONIA Admit Date/Time: 12/09/18 11:45 Admit Provider: Martín Tai Attending Provider: Martín Tai Primary Care Provider: Kwesi Stewart Hospital Course Hospital Course: Ms Garcia is a 63 year old female with PMHx of IDDM2, Hypertension, hyperlipidemia, hypothyroidism, admitted to [facility] on 12/07/18 with CAP, hypoxia with O2 sats of 89% on RA, and FENG. She had leucocytosis, but did not meet other sepsis criteria. She was treated with levofloxacin, systemic and inhaled corticosteroids, nebs with significant clinical improvement. Her Sputum culture grew GNR, which at this time is still speciating, but per my conversation with microbiology could be Haemophilus influenzae. We observed the best clinical response after rocephin was added to levofloxacin. The patient also had FENG on this admission. Her Avery-i was placed on hold, with improvement in creatinine. Lisinopril is being discontinued at the time of discharge with follow up labs in 1 week. The patient is to complete 3 more days of antibiotics and to follow up with her PCP. On discharge, she is not requiring oxygen and is not bronchospastic. Home Meds and New Rx's Prescriptions: New benzonatate 200 mg Capsule 200 mg PO TID PRN PRNQty: 30 RF: 0 prednisone 20 mg Tablet See Rx Instructions .ROUTE .COMPLEX Qty: 6 RF: 0 guaifenesin [Mucinex] 600 mg Tablet Extended Release 12hr 600 mg PO BID PRN PRNQty: 30 RF: 0 cefuroxime axetil 250 mg tablet 250 mg PO Q12H Qty: 6 RF: 0 levofloxacin 750 mg tablet 750 mg PO Q48H Qty: 2 RF: 0 Continued multivitamin [Daily Vitamin] 1 EACH tablet 1 tab PO DAILY RF: 0 atorvastatin 20 MG tablet 20 mg PO DAILY RF: 0 glipizide 10 MG tablet 20 mg PO DAILY RF: 0 calcium carbonate-vitamin D3 1 EACH tablet 1 tab PO BID RF: 0 ranitidine HCl [Zantac] 150 MG tablet 150 mg PO BID RF: 0 aspirin [Aspirin Low-Strength] 81 MG tablet,chewable 81 mg PO DAILY RF: 0 Januvia 100 MG tablet 100 mg PO DAILY RF: 0 Vitamins B Complex 1 EACH tablet 1 tab PO DAILY RF: 0 Lantus Solostar U-100 Insulin 100 UNIT/ML insulin pen 32 unit SQ .QAM RF: 0 Trintellix 20 MG tablet 20 mg PO DAILY RF: 0 levothyroxine 50 mcg Tablet 50 mcg PO DAILY RF: 0 Changed Lantus Solostar U-100 Insulin 100 UNIT/ML insulin pen 15 unit SQ .QHS Qty: 0 RF: 0 Discontinued lisinopril 10 MG tablet 10 mg PO DAILY RF: 0 ibuprofen 800 MG tablet 800 mg PO TID PRN Qty: 30 RF: 0 Discharge Instructions Instructions: Ceftriaxone (Injection), Levofloxacin (By mouth), Bacterial Pneumonia (DC) Additional Instructions: Finish your antibiotics and steroids as prescribed. Return to the hospital if your breathing worsens, if you have any chest pain, or bleeding. Decrease your night time insulin to your baseline in 2 days. Stand Alone Forms: Nursing Discharge Form Referrals: Kwesi Stewart [Primary Care Provider] - 12/17/18 1:00 pm Activity:: Activity as Tolerated Equipment/Supplies:: No Equipment Needed Diet:: Carb Counting Discharge Orders Discharge Orders: Discharge Order (Routine); Ordered 12/10/18 Ordered By: Jodi Bal Other Ambulatory Orders: Basic Metabolic Panel (Routine) Location: Determined by Patient Ordered By: Jodi Bal Magnesium (Routine) Location: Determined by Patient Ordered By: Jodi Bal Exam Narrative Exam Narrative: General: A pleasant obese middle-aged female, sitting in bed, looks very comfortable HEENT: Extraocular movements are intact, moist mucous membranes Heart: Regularly regular rhythm, no murmurs, rubs, or gallops Lungs: Lungs completely clear bilaterally GI: Abdomen is soft, obese, nontender, nondistended Extremities: trace bilateral lower extremity minimally pitting edema, nor clubbing or cyanosis noted. DS: Data Vitals/I&O Vitals and I&O: Vital Signs Temperature 36.4 C L 12/10/18 11:25 Temperature Source Tympanic 12/10/18 11:25 Pulse 101 H 12/10/18 11:25 Pulse Rhythm Regular 12/10/18 00:00 Respiratory Rate 22 12/10/18 11:25 Respiratory Effort Non-Labored 12/09/18 16:31 Respiratory Depth Normal 12/09/18 16:31 Respiratory Pattern Irregular 12/09/18 16:31 Blood Pressure 134/77 12/10/18 11:25 Pulse Oximetry 95 12/10/18 11:25 Oxygen Delivery Method Room Air 12/10/18 11:25 Oxygen Flow Rate 0 12/10/18 11:25 Pain Level 0 12/10/18 04:10 Comment 12/10/18 04:10 Intake & Output 12/09/18 12/10/18 12/10/18 23:59 11:59 23:59 Intake Total 960 / 4806.333 400 / 700 300 / 700 Output Total 1300 / 2700 2500 / 2500 Balance -340 / 2106.333 -2100 / -1800 300 / -1800 Intake: IV 20 / 2776.333 Oral 940 / 2030 400 / 700 300 / 700 Output: Urine 1300 / 2700 2500 / 2500 Other: Urine Color Yellow Yellow Urine Appearance Clear Cloudy Urine Odor Normal Normal Voiding Methods Toilet Toilet Pending studies at discharge: CXR 12/07/18: No acute process US venous BLE's: No evidence of a deep venous thrombus in either lower extremity. US kidneys: No acute abnormality. CXR 12/10/18: Small linear infiltrates seen in the lung bases. These may represent atelectasis or pneumonia. Follow up as appropriate. Labs on day of discharge: Labs from last 24 hours 12/10/18 12/10/18 12/10/18 07:45 07:45 07:45 WBC 16.06 H RBC 4.05 Hgb 11.8 L Hct 35.0 L MCV 86.4 MCH 29.1 MCHC 33.7 RDW 14.8 H Plt Count 289 MPV 10.2 Immature Gran % 1.6 Neutrophils % 85.7 Lymphocytes % 8.0 Monocytes % 4.5 Eosinophils % 0.1 Basophils % 0.1 Absolute Neutrophils 13.76 H Absolute Lymphocytes 1.28 Absolute Monocytes 0.72 H Absolute Eosinophils 0.02 Absolute Basophils 0.02 Sodium 140 Potassium 4.0 Chloride 108 H Carbon Dioxide 22.8 Anion Gap 9.2 BUN 31 H Creatinine 1.62 H Estimated GFR/1.73 m2 32.30 Glucose 211 H D Lactate 1.0 Calcium 9.1 Magnesium 1.7 L Troponin I NT-Pro-B Natriuret Pep 12/09/18 12:00 WBC RBC Hgb Hct MCV MCH MCHC RDW Plt Count MPV Immature Gran % Neutrophils % Lymphocytes % Monocytes % Eosinophils % Basophils % Absolute Neutrophils Absolute Lymphocytes Absolute Monocytes Absolute Eosinophils Absolute Basophils Sodium 137 Potassium 3.9 Chloride 105 Carbon Dioxide 21.4 Anion Gap 10.6 BUN 34 H D Creatinine 1.79 H Estimated GFR/1.73 m2 28.79 Glucose 305 H Lactate Calcium 8.8 Magnesium 1.7 L Troponin I < 0.02 NT-Pro-B Natriuret Pep 2045 H Preliminary micro results at discharge 12/07/18 20:20 Sputum Culture - Preliminary Sputum Normal [place] 12/07/18 17:00 Blood Culture - Preliminary Blood NO GROWTH 48 HOURS 12/07/18 16:07 Blood Culture - Preliminary Blood NO GROWTH 48 HOURS PFSH Medical History GERD (gastroesophageal reflux disease) (Chronic) Type 2 diabetes mellitus treated with insulin (Chronic) Hyperlipidemia (Chronic) Essential hypertension (Chronic) Surgical History H/O lumbar discectomy (Resolved) H/O rotator cuff surgery (Resolved) H/O tubal ligation (Resolved) History of cholecystectomy (Resolved) Social History marital status: number of children: 3 Smoking and Tabacco status: Never alcohol intake: never
--- NOTE | 2018-12-10 14:24 | W.INDIABCONS ---
Date of service: 12/10/18 Time of Service: 14:24 Diabetes Inpatient Consult DESCRIPTION/ASSESSMENT: Appreciate diabetes consult for Yesenia Garcia who is 63 and hospitalized for pneumonia with renal involvement. A1c 8.6 BMI 44 Blood sugars fasting are 237-294 with the same range for pre-meal blood sugars other than 120mg/dl today prior to noon meal. She receives a total of 51u basal insulin daily in 2 doses, resistant insulin correction and insulin for carbohydrate at 1 unit covers 10 grams as well as Januvia. Total daily dose of Novolog is in the 50unit range. She currently receives 20mg Prednisone. At home blood sugars are managed with basal insulin, glipizide and Januvia. Visited with Mrs. Garcia who can give me her medication regimen. She states blood sugars fluctuate at home and she does not always know why. She admits that she does not always pay close attention to portions. She does not feel she needs any information regarding diabetes or self management support at this time. INTERVENTION: Fasting blood sugars remain elevated. She may benefit from a higher dose of basal insulin increasing by 10% to 56units total Lantus with 32 AM and 20u PM. She declines self management support at this time. PLAN: Suggest increasing Lantus to 20units PM and usual 32units AM. Will follow blood sugars Time Spent in Nutritional Counseling and Treatment: 15 minutes face to face inpatient
--- NOTE | 2018-12-10 14:24 | PDOC.CMDIS ---
- If Service Date Differs Date of service: 12/10/18 Time of Service: 14:24 LACE Index Scoring Tool - Questions: Length of Stay (in days): 3 Acuity (Admit via E.D.?): Yes Comorbidities: Diabetes w/o Complication E.D. Visits: 2 - Answers: Total Score: 9 Risk of Readmission: Low Risk Care Management Discharge Reason for Hospitalization: Community Acquired Pneumonia Discharge Plan: Yesenia will return home today with no services. She will F/U with PCP and plan of care as prescribed. Yesenia to transport via private vehicle. Patient/Family Education Needs: Review DC instructions, any limitations, and discuss 'Ask Me Three'
== END 2018-12-10 15:16 | disposition home or self-care (01) | DRG 871 ==
LOC: ER 18:40 → MS 18:57
PROVIDERS: Nurse Practitioner Family; Admitting Provider Internal Medicine; Emergency Provider Student in an Organized Health Care Education/Training Program; PCP Family Medicine; Visit Provider Internal Medicine
DX: A41.9 Sepsis, unspecified organism (principal); J18.9 Pneumonia, unspecified organism; N17.9 Acute kidney failure, unspecified; J98.11 Atelectasis; Z68.41 Body mass index [BMI] 40.0-44.9, adult; R09.02 Hypoxemia; R65.20 Severe sepsis without septic shock; E11.65 Type 2 diabetes mellitus with hyperglycemia; R60.0 Localized edema; T38.3X5A Adverse effect of insulin and oral hypoglycemic [antidiabetic] drugs, initial encounter; Z71.3 Dietary counseling and surveillance
CPT/HCPCS: 36415; 76770; 80048; 80053; 87040; 87077; 87449; 94640; 96361; 96365; 96368; 96375; 99220; 99224; 99232; 99239; 99285; 71045; 71046; 81003; 82043; 82570; 83036; 83605; 83735; 83880; 84443; 84484; 85025; 87070; 87205; 93970; G0378; J0696; J1650; J1720; J1941; J1956; J2930; J3480; J3490; J7512; J7620

== ENCOUNTER 2022-04-24 17:50 | Outpatient (REF) | payer OTHER, MEDICAID, SELFPAY | END 2022-04-24 17:51 | disposition home or self-care (01) | LOC: LBN 17:50 | PROVIDERS: PCP Family Medicine; Visit Provider Nurse Practitioner Family | DX: L03.116 Cellulitis of left lower limb (principal) | CPT/HCPCS: 87077; 87070; 87186; 87205 ==

== ENCOUNTER 2022-12-25 08:11 | Outpatient (CLI) | payer MEDICARE, MEDICAID, SELFPAY ==
[2022-12-25 12:38] LABS: Calculated LDL 114 mg/dL (<100); Cholesterol 194 mg/dL (<200); HDL Cholesterol 44 mg/dL (40-60); TSH (W/Ref FT4) 3.99 uIU/mL (0.36-3.74); Triglyceride 180 mg/dL (<150)
[2022-12-25 13:27] LABS: Hemoglobin A1C > 13.0 % (<5.7)
[2022-12-26 12:51] LABS: BUN 28 mg/dL (7-18); CREATININE 1.6 mg/dL (0.55-1.02); Calcium 9.7 mg/dL (8.5-10.1); Chloride 103 mmol/L (98-107); Estimated GFR 35.57 (mL/min/1.73m2); Glucose 193 mg/dL (74-106); Magnesium 1.9 mg/dL (1.8-2.4); Potassium 4.2 mmol/L (3.5-5.1); Sodium 141 mmol/L (136-145)
== END 2022-12-25 08:12 | disposition home or self-care (01) ==
LOC: LOS 08:12
PROVIDERS: PCP Nurse Practitioner Family; Referring Provider Nurse Practitioner Family; Visit Provider Nurse Practitioner Family
DX: E03.9 Hypothyroidism, unspecified (principal); E78.5 Hyperlipidemia, unspecified; E11.3393 Type 2 diabetes mellitus with moderate nonproliferative diabetic retinopathy without macular edema, bilateral; N17.9 Acute kidney failure, unspecified
CPT/HCPCS: 36415; 80048; 80061; 83036; 83735; 84439; 84443

== ENCOUNTER 2024-08-03 10:43 | Outpatient (CLI) | payer MEDICARE, OTHER, SELFPAY ==
[2024-08-03 12:25] LABS: HCT 45.5 % (36.0-46.0); HGB 14.6 g/dL (11.2-15.7); MCH 29.2 pg (27.0-33.0); MCHC 32.1 % (32.0-36.0); MCV 91 fL (80-95); MPV 11.6 fL (8.0-11.0); Platelet Count 225 10^3/uL (130-400); RDW 13.7 % (11.7-14.6); RDW-SD 46.2 fL; WBC 8.36 10^3/uL (4.4-10.8)
[2024-08-03 12:51] LABS: Iron 51 ug/dL (50-170)
[2024-08-03 12:58] LABS: ALT 17 U/L (14-59); AST 13 U/L (15-37); Albumin 3.4 g/dL (3.4-5.0); Alkaline Phosphatase 138 U/L (46-116); BUN 31 mg/dL (7-18); Bilirubin, Total 0.81 mg/dL (0.2-1.0); CREATININE 1.9 mg/dL (0.55-1.02); Calcium 9.5 mg/dL (8.5-10.1); Calculated LDL 96 mg/dL (<100); Chloride 105 mmol/L (98-107); Cholesterol 163 mg/dL (<200); Estimated GFR 28.76 (mL/min/1.73m2); Ferritin 145 ng/mL (8-252); Glucose 282 mg/dL (74-106); HDL Cholesterol 36 mg/dL (40-60); Magnesium 1.8 mg/dL (1.8-2.4); Potassium 4.2 mmol/L (3.5-5.1); Sodium 143 mmol/L (136-145); TSH (W/Ref FT4) 3.55 uIU/mL (0.36-3.74); Total Protein 7.3 g/dL (6.4-8.2); Triglyceride 156 mg/dL (<150); Vitamin D 25 Total 44.8 ng/mL (30-100)
== END 2024-08-03 10:44 | disposition home or self-care (01) ==
LOC: LOS 10:44
PROVIDERS: PCP Nurse Practitioner Family; Referring Provider Nurse Practitioner Family; Visit Provider Nurse Practitioner Family
DX: K21.9 Gastro-esophageal reflux disease without esophagitis (principal); E55.9 Vitamin D deficiency, unspecified; G25.81 Restless legs syndrome; E78.5 Hyperlipidemia, unspecified; E61.1 Iron deficiency; R68.89 Other general symptoms and signs; E11.3393 Type 2 diabetes mellitus with moderate nonproliferative diabetic retinopathy without macular edema, bilateral
CPT/HCPCS: 36415; 80053; 80061; 82306; 85027; 82728; 83540; 83735; 84443

== ENCOUNTER 2025-07-27 06:14 | Emergency (ER) | payer MEDICARE, OTHER, SELFPAY ==
[2025-07-27 06:17] VITALS: BP 170/87; PULSE 80; RESP 18; TEMP 36.5; O2SAT 96
--- NOTE | 2025-07-27 06:30 | W.ED.GENAD ---
Discharge Plan Disposition Patient Disposition: Home Condition: Improving Discharge Details Clinical Impression: Spasm of muscle of lower back Primary Care Provider: Leonid Rhodes ED Provider: Bonifacio Edward [place] Meds and New Rx's Prescriptions: New methocarbamol 500 mg tablet 1,000 mg PO TID Qty: 30 0RF lidocaine 5 % adhesive patch,medicated 1 patch topical DAILY Qty: 15 0RF Rx Instructions: leave on most painful area for up to 12 hrs Continued loratadine [Allergy Relief (loratadine)] 10 mg tablet 10 mg PO DAILY PRN ropinirole 3 mg tablet 3 mg PO BID Qty: 180 4RF glipizide 10 mg tablet extended release 24hr 20 mg PO DAILY Qty: 180 4RF Rx Instructions: change to ER tirzepatide 15 mg/0.5 mL pen injector 15 mg subcut QWEEK Qty: 2 12RF Rx Instructions: for 4 weeks betamethasone valerate 0.1 % cream 1 applic topical BID PRN (Reason: rash) Qty: 45 0RF albuterol sulfate 90 mcg/actuation HFA aerosol inhaler 2 puff inhalation 6XD PRN (Reason: shortness of breath or wheezing) Qty: 8.5 0RF magnesium oxide 400 mg (241.3 mg magnesium) tablet 400 mg PO DAILY Qty: 90 3RF (DME) Accu-Chek Guide test strips Strip See Rx Instructions .Route Qty: 100 12RF Rx Instructions: QID (DME) pen needle, diabetic [Comfort EZ Pen [place]] 31 gauge x 3/16 needle See Rx Instructions .Route Qty: 500 4RF Rx Instructions: As directed, insulin injections 5x daily, 90d. levothyroxine 50 mcg tablet 50 mcg PO DAILY Qty: 90 4RF atorvastatin 20 mg tablet 20 mg PO DAILY Qty: 90 4RF losartan-hydrochlorothiazide 100-25 mg tablet 1 tab PO DAILY Qty: 90 3RF Rx Instructions: Given by PCP metoprolol succinate 50 mg tablet extended release 24 hr 50 mg PO DAILY Qty: 90 4RF omeprazole 40 mg capsule,delayed release(DR/EC) 40 mg PO DAILY Qty: 90 4RF insulin glargine [Lantus Solostar U-100 Insulin] 100 unit/mL (3 mL) insulin pen 20 unit subcut BID Qty: 15 12RF Rx Instructions: up to 20 units HS prn insulin aspart U-100 100 unit/mL (3 mL) insulin pen 10 unit subcut TID PRN (Reason: diabetes) Qty: 15 12RF multivitamin [Daily Vitamin] 1 EACH tablet 1 tab PO DAILY calcium carbonate-vitamin D3 1 EACH tablet 1 tab PO BID aspirin [Aspirin Low-Strength] 81 MG tablet,chewable 81 mg PO DAILY Patient Comments: 10/11/17-PT NOT CURRENTLY TAKING, DUE TO PAIN MEDS--ROSA ISELA HINOJOSA Vitamins B Complex 1 EACH tablet 1 tab PO DAILY Discharge Instructions Instructions: Muscle Spasm ED Additional Instructions: You were seen in the ED for low back pain that seems musculoskeletal in nature and possibly related to muscle spasm given improvement with use of lidocaine patch and methocarbamol. Prescriptions for same have been sent to pharmacy. You may continue alternating acetaminophen with ibuprofen. The IM injection you received is similar to ibuprofen so your next dose of pain medication should be acetaminophen around lunchtime. Follow-up with primary care later this week if you are not improving. Return to ED for severe worsening pain, numbness or weakness to the legs, bladder or bowel dysfunction, fever, abdominal pain, other concerns. Referrals: Leonid Rhodes NP [Primary Care Provider, Medicine] HPI General Mode of arrival: ambulatory. Date/Time Provider Initiated Documentation: 07/27/25 06:22. Limitations to Documentation: no limitations. Information obtained by: patient, RN notes reviewed and old records reviewed. HPI Narrative: Patient presents to ED with low back pain that began 4 days ago and has worsened despite use of Advil and Tylenol. She does have a prior history of back problems with surgery remotely. Most recently had been doing well with no significant pain. Since Saturday worsening pain on both sides but had originally started on the left. Denies any type of trauma. She has had no falls, car accidents, heavy lifting. Pain is significantly worse with movement especially attempting to reach or to go from sitting to standing and vice versa. Denies any bladder or bowel dysfunction. Denies any fever. Has some abdominal discomfort but had this prior to the back bothering her but it was related to diarrhea the week before. No longer having any diarrhea. Abdomen is not painful just sore. No new numbness or weakness in the lower extremities. Related Data Home Medications ?Medication ?Instructions ?Recorded ?Confirmed aspirin 81 mg chewable tablet 81 mg PO DAILY 05/31/14 07/27/25 (Aspirin Low-Strength) calcium 600 mg (as 1 tab PO BID 05/31/14 07/27/25 carbonate)-vitamin D3 5 mcg (200 unit) tablet multivitamin (Daily Vitamin tablet) 1 tab PO DAILY 05/31/14 07/27/25 vit B gescvxt-U-SA-iron fum-vit E 1 tab PO DAILY 05/31/14 07/27/25 500 mg-400 mcg-18 mg iron tablet (Vitamins B Complex) betamethasone valerate 0.1 % 1 applic topical BID PRN rash #45 03/27/24 07/27/25 topical cream grams magnesium oxide 400 mg (241.3 mg 400 mg PO DAILY #90 tabs 06/17/24 07/27/25 magnesium) tablet albuterol sulfate 90 mcg/actuation 2 puff inhalation 6XD PRN 07/06/24 07/27/25 aerosol inhaler shortness of breath or wheezing #8.5 grams loratadine 10 mg tablet (Allergy 10 mg PO DAILY PRN 08/03/24 07/27/25 Relief (loratadine)) ropinirole 3 mg tablet 3 mg PO BID #180 tabs 09/28/24 07/27/25 blood sugar diagnostic (Accu-Chek #100 ea 10/26/24 07/27/25 Guide test strips) levothyroxine 50 mcg tablet 50 mcg PO DAILY #90 tabs 12/24/24 07/27/25 pen needle, diabetic 31 gauge x #500 ea 12/24/24 07/27/2516 (Comfort EZ Pen [place]) atorvastatin 20 mg tablet 20 mg PO DAILY #90 tabs 01/19/25 07/27/25 losartan 100 1 tab PO DAILY #90 tabs 02/10/25 07/27/25 mg-hydrochlorothiazide 25 mg tablet metoprolol succinate 50 mg 50 mg PO DAILY #90 tabs 02/11/25 07/27/25 tablet,extended release 24 hr omeprazole 40 mg capsule,delayed 40 mg PO DAILY #90 caps 02/17/25 07/27/25 release glipizide 10 mg tablet, extended 20 mg (2 x 10 mg) PO DAILY #180 04/02/25 07/27/25 release 24 hr tabs tirzepatide 15 mg/0.5 mL 15 mg (0.5 mL) subcut QWEEK #2 mL 04/02/25 07/27/25 subcutaneous pen injector insulin glargine 100 unit/mL (3 20 unit (0.2 mL) subcut BID #15 mL 04/05/25 07/27/25 mL) subcutaneous pen (Lantus Solostar U-100 Insulin) insulin aspart U-100 100 unit/mL 10 unit (0.1 mL) subcut TID PRN 07/02/25 07/27/25 (3 mL) subcutaneous pen diabetes #15 mL lidocaine 5 % topical patch 1 patch topical DAILY #15 ea 07/27/25 methocarbamol 500 mg tablet 1,000 mg (2 x 500 mg) PO TID #30 07/27/25 tabs Previous Rx's ?Medication ?Instructions ?Recorded betamethasone valerate 0.1 % 1 applic topical BID PRN rash #45 03/27/24 topical cream grams magnesium oxide 400 mg (241.3 mg 400 mg PO DAILY #90 tabs 06/17/24 magnesium) tablet albuterol sulfate 90 mcg/actuation 2 puff inhalation 6XD PRN 07/06/24 aerosol inhaler shortness of breath or wheezing #8.5 grams ropinirole 3 mg tablet 3 mg PO BID #180 tabs 09/28/24 blood sugar diagnostic (Accu-Chek #100 ea 10/26/24 Guide test strips) levothyroxine 50 mcg tablet 50 mcg PO DAILY #90 tabs 12/24/24 pen needle, diabetic 31 gauge x #500 ea 12/24/2401/03 (Comfort EZ Pen [place]) atorvastatin 20 mg tablet 20 mg PO DAILY #90 tabs 01/19/25 losartan 100 1 tab PO DAILY #90 tabs 02/10/25 mg-hydrochlorothiazide 25 mg tablet metoprolol succinate 50 mg 50 mg PO DAILY #90 tabs 02/11/25 tablet,extended release 24 hr omeprazole 40 mg capsule,delayed 40 mg PO DAILY #90 caps 02/17/25 release glipizide 10 mg tablet, extended 20 mg (2 x 10 mg) PO DAILY #180 04/02/25 release 24 hr tabs tirzepatide 15 mg/0.5 mL 15 mg (0.5 mL) subcut QWEEK #2 mL 04/02/25 subcutaneous pen injector insulin glargine 100 unit/mL (3 20 unit (0.2 mL) subcut BID #15 mL 04/05/25 mL) subcutaneous pen (Lantus Solostar U-100 Insulin) insulin aspart U-100 100 unit/mL 10 unit (0.1 mL) subcut TID PRN 07/02/25 (3 mL) subcutaneous pen diabetes #15 mL lidocaine 5 % topical patch 1 patch topical DAILY #15 ea 07/27/25 methocarbamol 500 mg tablet 1,000 mg (2 x 500 mg) PO TID #30 07/27/25 tabs Allergies Allergy/AdvReac Type Severity Reaction Status Date / Time bupropion HCl (From Allergy Intermediate RASH Unverified 07/27/25 06:21 Wellbutrin) metformin Allergy Intermediate affecting Verified 07/27/25 06:21 Kidneys adhesive Allergy Unknown Skin Rash Unverified 07/27/25 06:21 gabapentin AdvReac Intermediate Other (See Verified 07/27/25 06:21 Comment) General Stated Complaint: Nk/Back Pain PATY: 4 Exam Narrative Exam Narrative: Const: Obese female in NAD. VS per triage. HEENT: NC/AT. Normal facial exam. Neck: Supple. Trachea midline. Lungs: Normal respiratory effort. GI: Soft/ND/NT. Back: Paraspinal tenderness bilaterally along the lower lumbar spine. No bony tenderness. Neuro: A+O x 3. Normal speech, mentation, gait. Cranial nerves II - XII grossly intact. No gross motor or sensory deficit. Course Vital Signs Vital signs: Vital Signs Temperature 97.7 F 07/27/25 06:17 Pulse 80 07/27/25 06:17 Respiratory Rate 18 07/27/25 06:17 Blood Pressure 170/87 H 07/27/25 06:17 Pulse Oximetry 96 07/27/25 06:17 Temperature 97.7 F 07/27/25 06:17 Temperature Source Temporal Artery Scan 07/27/25 06:17 Pulse 80 07/27/25 06:17 Respiratory Rate 18 07/27/25 06:17 Blood Pressure 170/87 H 07/27/25 06:17 Pulse Oximetry 96 07/27/25 06:17 Oxygen Delivery Method Room Air 07/27/25 06:17 Oxygen Flow Rate 0 07/27/25 06:17 Pain Level 9 07/27/25 06:17 Medical Decision Making Patient presenting to ED with low back pain that appears to be musculoskeletal in nature. Her abdomen is benign. Her neurologic exam is unremarkable. Her strength is normal though she does give way because of pain. No change in sensation. Reports no bladder or bowel dysfunction and sensation in the perineum. She has not taken Advil since yesterday. Will dose with IM ketorolac, p.o. methocarbamol and place lidocaine patch. I do not think she requires imaging at this time as she has no tenderness over the spine itself, seems to be somewhat muscular in nature and possibly spasmodic by the way she is describing it. She does describe some shooting pain down the legs which would potentially suggest neuropathic component. Consider steroids. Will reevaluate after medicated and given time to see if any improvement. Patient reports improvement after medications. Stabbing/grabbing pain has improved significantly. Will discharge with prescriptions for methocarbamol and lidocaine patches. Continue alternating acetaminophen with ibuprofen. Follow-up with primary care in the week if not improving. Return precautions provided. Medical Records Medical records reviewed: Yes I reviewed the patient's medical records. Medical records narrative: outpatient neuro note PFSH All Active Problems (Updated 07/27/25 @ 08:01 by Bonifacio Edward MD) Spasm of muscle of lower back (Acute) Restless leg syndrome (Acute) Essential hypertension (Chronic) Hyperlipidemia (Chronic) GERD (gastroesophageal reflux disease) (Chronic) SIRS (systemic inflammatory response syndrome) (Acute) Acute kidney injury (nontraumatic) (Acute) Obesity, morbid, BMI 40.0-49.9 (Chronic) CKD (chronic kidney disease), stage IV (Acute) Hip pain, right (Acute) Major depressive disorder, recurrent, mild (Acute) Hypothyroidism (Chronic) Weakness of left arm (Acute) Hip pain, left (Acute) Tubular adenoma (Acute) Regular astigmatism, bilateral (Acute) Presbyopia (Acute) Hypermetropia, bilateral (Acute) Presence of intraocular lens (Acute) Puckering of macula, left eye (Acute) Type 2 diabetes mellitus with moderate nonproliferative diabetic retinopathy without macular edema, bilateral (Acute) Primary osteoarthritis of right knee (Acute) Cystoid macular edema following cataract surgery, left eye (Acute) Other secondary cataract, bilateral (Acute) Nerve injury (Acute) Left radial nerve palsy (Acute) Edema (Acute) Medical History Pneumonia Hx of dislocation of shoulder (~09/23/17) left Injury of left brachial plexus Weight gain Arthritis Colon polyp Eczema GERD (gastroesophageal reflux disease) Hyperlipidemia Depression Abdominal pain, RUQ DVT prophylaxis Discharge planning issues Community acquired pneumonia Type 2 diabetes mellitus treated with insulin Surgical History Status post laser cataract surgery of left eye History of surgical procedure (~1987) Gallbladder S/P radial nerve neurolysis 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 Sister Depression Diabetes Hyperlipidemia Brother Diabetes Heart disease Brother Prostate cancer Diabetes Heart disease Son Hyperlipidemia Son No problems noted. Son Diabetes Daughter No problems noted. Social History Smoking/Tobacco Use Status: Never Second Hand Exposure: Yes Smoking risk assessment performed?: Yes Alcohol Intake: never Drug use: Never Substance use type: does not use Adopted: No Caregiver/Support person: No Foster care: No Household members: family Housing: house Number of Children: 4 number of grandchildren: 4 Communication Needs: Hard of Hearing Education Level: high school Do you need help understanding health information?: Often current occupation: Retired Pets and animals: No Sexually active: No Do you think of yourself as: straight/heterosexual Current gender identity: female What is your relationship status?: How often do you talk on the phone with friends or family?: once per week How often do you attend yazidism or taoism services?: decline to answer Do you belong to any clubs or organized social groups?: no Panel score (0-1 are the most socially isolated patients): 0 What type of physical activity do you participate in: walking and additional Details: physical therapy Duration: 30-45 minutes/day Frequency: 1-2 times per week Annika/Catholic: No preference Special annika needs: No Seatbelt use: always Helmet use: Yes Helmet use: always Drive intox or ride w/intox armored car driver: No Working smoke detector in home: Yes Carbon monox detector in home: Yes Firearms in home: No Do you feel safe at home: Yes Do you feel safe in your relationship?: Yes Victim of physical abuse: No Victim of emotional abuse: No Victim of sexual abuse: No
[2025-07-27] MEDS: Lidocaine 5% Patch 1 PATCH TP (06:44)
[2025-07-27] MEDS: Ketorolac 30 MG/ML VIAL IM (06:44)
[2025-07-27] MEDS: Methocarbamol 500 MG TAB 1000 MG PO (06:44)
[2025-07-27 08:16] VITALS: BP 135/64; PULSE 77; RESP 17; O2SAT 95
--- NOTE | 2025-07-27 10:17 | NUR.NOTE ---
Prior authorization faxed to PCP for lidocaine 5% patches. Nursing Note:
== END 2025-07-27 08:17 | disposition home or self-care (01) ==
PROVIDERS: Emergency Provider Emergency Medicine; PCP Nurse Practitioner Family
DX: M62.830 Muscle spasm of back (principal)
CPT/HCPCS: 99284 ×2; 96372; J1885

== ENCOUNTER 2025-09-29 09:54 | Outpatient (CLI) | payer MEDICARE, OTHER, SELFPAY ==
[2025-09-29 18:02] LABS: ALT 16 U/L (10-49); AST 20 U/L (<34); Albumin 4.3 g/dL (3.2-5.0); Alkaline Phosphatase 117 U/L (46-116); Anion Gap 10.1 mmol/L (3-11); BUN 29 mg/dL (9-23); Bilirubin, Total 0.5 mg/dL (0.2-1.2); CO2 26.9 mmol/L (20.0-31.0); Calcium 9.4 mg/dL (8.3-10.6); Chloride 103 mmol/L (98-107); Cholesterol 165 mg/dL (<200); Glucose 162 mg/dL (74-106); HDL Cholesterol 37 mg/dL (>40); Potassium 4.1 mmol/L (3.5-5.1); Sodium 140 mmol/L (136-145); Total Protein 7.1 g/dL (5.7-8.2)
== END 2025-09-29 09:55 | disposition home or self-care (01) ==
PROVIDERS: PCP Nurse Practitioner Family; Visit Provider Nurse Practitioner Family
DX: I10 Essential (primary) hypertension (principal); E78.5 Hyperlipidemia, unspecified; R06.09 Other forms of dyspnea; R60.9 Edema, unspecified
CPT/HCPCS: 36415; 80053; 80061; 82043; 82570; 83880

== ENCOUNTER 2025-10-11 01:53 | Outpatient (CLI) | payer MEDICARE, OTHER, SELFPAY ==
[2025-10-11 15:08] LABS: Anion Gap 12.2 mmol/L (3-11); BUN 38 mg/dL (9-23); CO2 25.8 mmol/L (20.0-31.0); Calcium 9.1 mg/dL (8.3-10.6); Chloride 101 mmol/L (98-107); Glucose 201 mg/dL (74-106); Potassium 3.3 mmol/L (3.5-5.1); Sodium 139 mmol/L (136-145)
== END 2025-10-11 01:54 | disposition home or self-care (01) ==
LOC: LOS 01:53
PROVIDERS: PCP Nurse Practitioner Family; Visit Provider Nurse Practitioner Family
DX: G25.81 Restless legs syndrome (principal); I10 Essential (primary) hypertension
CPT/HCPCS: 36415; 80048